=== PATIENT | female | born 1985 | race African-American/Black ===

== ENCOUNTER 2023-04-08 10:05 | Emergency (ER) | payer OTHER, SELFPAY ==
[2023-04-08 10:20] VITALS: BP 113/80; PULSE 73; RESP 18; TEMP 36.8; O2SAT 99; BMI 26.6
--- NOTE | 2023-04-08 10:38 | ED_ITS ---
HPI - URI/Sore Throat General Chief Complaint: Upper Respiratory Infection Stated Complaint: HEADACHE/POSS. FEVER Time Seen by Provider: 04/08/23 10:38 Source: patient Limitations: no limitations History of Present Illness HPI Narrative: Because emergency department complaining of runny nose, sore throat, myalgias, headache and feeling this way for the last 3 weeks. She has a cough which is nonproductive. She has been using Mucinex without any relief. He was seen at [place] 2 times and was told she had a viral infection but she was not tested for anything other than covid19 during her 1st visit. 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 She states that she had a fever one week ago. She denies any chest pain, shortness of breath. She denies any wheezing. She has no previous history of lung disease. She denies any nausea, vomiting, or diarrhea. He denies any abdominal pain, flank pain, hematuria, dysuria. Related Data Allergies Allergy/AdvReac Type Severity Reaction Status Date / Time No Known Drug Allergies Allergy Verified 04/08/23 10:24 Review of Systems ROS Status of ROS 10 or more systems reviewed and unremarkable except as noted in history and below [facility] Social History Smoking status: Current every day smoker Exam Narrative Exam Narrative: Nurses notes and vital signs reviewed and patient is not hypoxic. General: Nontoxic, Well-appearing and in no apparent distress. Skin: Warm, dry, no pallor noted. No Rash Head: Normocephalic, atraumatic. Neck: Supple, non-tender. Eye: Pupils are equal, round and EOMI. No scleral icterus. Ears, Nose, Mouth, and Throat: TM clear, no posterior oropharynx erythema or nasal mucosal hypertrophy, uvula is mid-line Oral mucosa is moist Cardiovascular: Regular Rate and Rhythm without murmur, gallop or rub. Respiratory: No accessory muscle use or respiratory distress. Lungs are clear to auscultation, no wheezing, rales or rhonchi Chest Wall: no tenderness Back: No midline thoracic or lumbar vertebral tenderness. No CVA tenderness Musculoskeletal: normal ROM, no calf or popliteal tenderness, no lower extremity edema/swelling GI: Abdomen is soft, non-distended. Normal bowel sounds. No masses appreciated. No tenderness to palpation. No rebound, guarding, or rigidity noted. Neurological: A&O x4. No cranial nerve dysfunction observed. No truncal ataxia. Moves all extremities. Sensation intact. Psychiatric: Cooperative and interactive. Normal mood and affect. Constitutional Vital Signs, click to edit/add: Last Vital Signs Temp 98.3 F 04/08/23 10:20 Pulse 73 04/08/23 10:20 Resp 18 04/08/23 10:20 BP 113/80 04/08/23 10:20 Pulse Ox 99 04/08/23 10:20 O2 Del Method Room Air 04/08/23 10:20 Course Vital Signs Vital signs: Vital Signs Temperature 98.3 F 04/08/23 10:20 Pulse Rate 73 04/08/23 10:20 Respiratory Rate 18 04/08/23 10:20 Blood Pressure 113/80 04/08/23 10:20 Pulse Oximetry 99 04/08/23 10:20 Oxygen Delivery Method Room Air 04/08/23 10:20 Temperature 98.3 F 04/08/23 10:20 Pulse Rate 73 04/08/23 10:20 Respiratory Rate 18 04/08/23 10:20 Blood Pressure 113/80 04/08/23 10:20 Pulse Oximetry 99 04/08/23 10:20 Oxygen Delivery Method Room Air 04/08/23 10:20 MDM - URI/Sore Throat MDM Narrative Medical decision making narrative: Chest x-ray was done and is unremarkable. Viral respiratory panel was ordered and is positive for rhinovirus. THE results discussed with patient. Patient was given an injection of Toradol. Patient is nontoxic, stable for outpatient follow-up and treatment. At this time the patient is without objective evidence of an acute process requiring hospitalization or inpatient management. The patient has remained hemodynamically stable. No additional indication for emergent studies at this time. I answered all questions. Discussed discharge instructions including standard anticipatory guidance and what should prompt a return to the emergency department, including if they get worse are not getting better or develops any new or concerning symptoms. I've given them specific time frame in which to follow-up, and who to follow-up with. The patient demonstrates understanding. Patient is nontoxic and stable for discharge with outpatient follow-up. This note was created with the assistance of a speech recognition program. Although the intention is to generate documents that actually reflects the content of the visit, no guarantees can be provided that every mistake has been identified and corrected by editing. Differential Diagnosis Differential diagnosis: Likely upper respiratory infection, viral infection, bronchitis and pharyngitis Lab Data Attestation: I reviewed the patient's lab results. Labs: Lab Results 04/08/23 Range/Units 10:41 Adenovirus (PCR) Not detected (NOT DETECTE) C. pneumoniae DNA (PCR) Not detected (NOT DETECTE) Coronavirus Type OC43 Not detected (NOT DETECTE) Coronavirus Type HKU1 Not detected (NOT DETECTE) Coronavirus Type 229E Not detected (NOT DETECTE) Coronavirus Type NL63 Not detected (NOT DETECTE) Human Metapneumovir PCR Not detected (NOT DETECTE) M. pneumoniae (PCR) Not detected (NOT DETECTE) Parainfluenza PCR Not detected (NOT DETECTE) Parainfluenza 2 (PCR) Not detected (NOT DETECTE) Parainfluenza 3 (PCR) Not detected (NOT DETECTE) Parainfluenza 4 (PCR) Not detected (NOT DETECTE) RSV (RT-PCR) Not detected (NOT DETECTE) Entero/Rhino (PCR) Detected A (NOT DETECTE) SARS-CoV-2 (PCR) Not detected (NOT DETECTE) Bordetella pertussis (PCR) Not detected (NOT DETECTE) B parapertussis DNA PCR Not detected (NOT DETECTE) Influenza Type A (PCR) Not detected (NOT DETECTE) Influenza Type B (PCR) Not detected (NOT DETECTE) Discharge Plan Discharge Chief Complaint: Upper Respiratory Infection Clinical Impression: Upper respiratory infection, Rhinovirus infection Patient Disposition: Home, Self-Care Time of Disposition Decision: 12:20 Condition: Good Mode of Transportation: Private Vehicle Instructions: Upper Respiratory Infection (ED) Stand Alone Forms: Portal Instructions Referrals: ALIYA SINGER APRN [Physician] - 1 week
--- NOTE | 2023-04-08 10:42 | XR_ITS ---
The [address] [address] Patient Name: LANG JAMES MRN: [id number] date: 1985 Sex: F Assigned Patient Location: ER Current Patient Location: ER Accession/Order Number: [id number] Exam Date: 04/08/2023 11:10 Report Date: 04/08/2023 11:32 At the request of: HARRY HUERTA Procedure: XR chest 2V EXAM: XR chest 2V HISTORY: cough for 3 weeks COMPARISON: None. TECHNIQUE: PA and lateral views of the chest. FINDINGS: The cardiomediastinal silhouette is normal. No focal consolidation is identified. There is no pneumothorax. No pleural effusion is noted. The osseous structures are intact. XR/XR chest 2V IMPRESSION: No acute cardiopulmonary process. Electronically authenticated by: VICKY HAGEN Date: 04/08/2023 11:32
[2023-04-08 11:28] LABS: Adenovirus NOT DETECTED (NOT DETECTE); Bordetella parapertussis NOT DETECTED (NOT DETECTE); Coronavirus 229E NOT DETECTED (NOT DETECTE); Coronavirus HKU1 NOT DETECTED (NOT DETECTE); Coronavirus NL63 NOT DETECTED (NOT DETECTE); Coronavirus OC43 NOT DETECTED (NOT DETECTE); Human Metapneumovirus NOT DETECTED (NOT DETECTE); Influenza A NOT DETECTED (NOT DETECTE); Influenza B NOT DETECTED (NOT DETECTE); Mycoplasma pneumoniae NOT DETECTED (NOT DETECTE); Parainfluenza Virus 1 NOT DETECTED (NOT DETECTE); Parainfluenza Virus 2 NOT DETECTED (NOT DETECTE); Parainfluenza Virus 3 NOT DETECTED (NOT DETECTE); Parainfluenza Virus 4 NOT DETECTED (NOT DETECTE); Respiratory Syncytial Virus NOT DETECTED (NOT DETECTE); SARS-CoV-2 NOT DETECTED (NOT DETECTE)
[2023-04-08 12:16] LABS: Human Rhinovirus/Enterovirus DETECTED (NOT DETECTE)
[2023-04-08] MEDS: KETOROLAC TROMETHAMINE 60 MG/2 ML VIAL IM (12:28)
[2023-04-08 12:33] VITALS: BP 143/88; PULSE 59; RESP 18; O2SAT 100
== END 2023-04-08 12:34 | disposition home or self-care (01) ==
PROVIDERS: Emergency Provider Emergency Medicine
DX: J06.9 Acute upper respiratory infection, unspecified (principal); B97.89 Other viral agents as the cause of diseases classified elsewhere; F17.210 Nicotine dependence, cigarettes, uncomplicated; Z20.822 Contact with and (suspected) exposure to COVID-19
CPT/HCPCS: 0202U; 71046; 96372; 99285

== ENCOUNTER 2023-06-25 19:32 | Emergency (ER) | payer OTHER, SELFPAY ==
[2023-06-25 19:40] VITALS: BP 133/82; PULSE 68; RESP 16; TEMP 36.9; O2SAT 100; BMI 25.8
--- NOTE | 2023-06-25 20:03 | PC.NURSE ---
Patient states she has been dealing with episodes of diarrhea for 2 years off and on. has seen her family doctor and was diagnosed with dumping syndrome. gall bladder removed in 2019. patient states she had 12 episodes of diarrhea yesterday. has been having to have bowel movements within 10 minutes of eating. states her family doctor has not referred her for gastro. denies nausea and vomiting
[2023-06-25 20:12] LABS: Basophils Percent Auto 0.5 % (0.2-2.0); Eosinophils Absolute Auto 0.2 10^3/uL (0.0-0.7); Eosinophils Percent Auto 3.9 % (0.9-7.0); Hematocrit 39.7 % (36.0-48.0); Immature Granulocytes Abs Auto 0.01 10^3/uL (0.00-0.03); Immature Granulocytes Pct Auto 0.2 % (0.0-0.5); Lymphocytes Absolute Auto 1.3 10^3/uL (1.2-3.8); Lymphocytes Percent Auto 30.5 % (20.5-60.0); Mean Corpuscular HGB Conc 32.7 g/dL (29.9-35.2); Mean Corpuscular Hemoglobin 28.9 pg (26.7-34.0); Mean Corpuscular Volume 88.2 fL (81.0-99.0); Mean Platelet Volume 9.9 fL (9.5-13.5); Monocytes Absolute Auto 0.3 10^3/uL (0.3-0.8); Monocytes Percent Auto 7.7 % (1.7-12.0); Neutrophils Absolute Auto 2.4 10^3/uL (1.4-6.5); Neutrophils Percent Auto 57.2 % (43.0-75.0); Platelet Count 295 10^3/uL (150-450); Red Cell Distribution Width 12.3 % (11.0-15.0); White Blood Count 4.1 10^3/uL (4.0-11.0)
[2023-06-25] MEDS: 0.9 % SODIUM CHLORIDE 1,000 ML 999 ML IV (20:26)
[2023-06-25 20:28] LABS: Alanine Aminotransferase 26 U/L (14-59); Albumin Globulin Ratio 1.1; Albumin Level 4.1 g/dL (3.4-5.0); Alkaline Phosphatase 70 U/L (46-116); Anion Gap 10.6; Aspartate Amino Transferase 16 U/L (15-37); BUN Creatinine Ratio 16.7; Bilirubin Total 0.3 mg/dL (0.2-1.0); Carbon Dioxide 27.8 mmol/L (21.0-32.0); Chloride 103 mmol/L (98-107); Estimated GFR (African America >60 (>=60); Estimated GFR (Non-African Ame >60 (>=60); Globulin 3.6 g/dL; Glucose 113 mg/dL (74-106); Potassium 3.4 mmol/L (3.5-5.1); Sodium 138 mmol/L (136-145); Total Protein 7.7 g/dL (6.4-8.2)
--- NOTE | 2023-06-25 20:59 | CT_ITS ---
[address] [address] Patient Name: LANG JAMES MRN: [id number] date: 1985 Sex: F Assigned Patient Location: ER Current Patient Location: ER Accession/Order Number: [id number] Exam Date: 06/25/2023 21:27 Report Date: 06/25/2023 22:16 At the request of: JESSIE BASILIO Procedure: CT abdomen pelvis w con EXAMINATION: CT ABDOMEN AND PELVIS WITH IV CONTRAST CLINICAL HISTORY: Diarrhea TECHNIQUE: CT of the abdomen and pelvis was performed using standard technique, scanning from just above the dome of the diaphragm to the symphysis pubis. All CT scans at this facility use dose modulation, iterative reconstruction, and/or weight based dosing when appropriate to reduce radiation dose to as low as reasonably achievable. Contrast: IV: 100 ml of Omnipaque 300 COMPARISON: CT abdomen and pelvis 09/21/2015 RESULT: Liver: No mass. Biliary: No bile duct dilation. Gallbladder is absent. Spleen: No mass. No splenomegaly. Pancreas: No mass or duct dilation. Adrenals: No mass. Kidneys: No mass, calculus or hydronephrosis. GI tract: Multiple fluid-filled nondilated small bowel and colonic loops, concerning for infectious enterocolitis. No bowel dilation. Stomach is unremarkable. Lymph nodes: No abdominal or pelvic lymphadenopathy. Mesentery/Peritoneum: No ascites or mass. Retroperitoneum: No mass. Vasculature: The celiac axis and SMA are patent. The portal vein and branches, splenic vein, SMV, and hepatic veins are patent. No abdominal aortic aneurysm. Pelvis: No mass, ascites or fluid collection. Circumferential urinary bladder wall thickening Bones/Soft Tissues: No significant finding. Lower thorax: Unremarkable. CT/CT abdomen pelvis w con IMPRESSION: Multiple fluid-filled nondilated small bowel and colonic loops, concerning for infectious enterocolitis. Electronically authenticated by: OSMAN PONCE Date: 06/25/2023 22:16
[2023-06-25 21:02] LABS: SARS-CoV-2 Ag NEGATIVE (NEGATIVE)
[2023-06-25] MEDS: POTASSIUM CHLORIDE 10 MEQ ER TABLET 40 MEQ PO (21:08)
--- NOTE | 2023-06-25 21:24 | ED_ITS ---
HPI - General Adult General Chief complaint: Nausea/Vomiting/Diarrhea Stated complaint: Diarrhea Time Seen by Provider: 06/25/23 19:42 Source: patient Mode of arrival: walk-in Limitations: no limitations History of Present Illness HPI narrative: patient complains of multiple bouts of foul-smelling diarrhea that has become worse over the last couple of days. She told me that over the last two years she has had difficulty with her bowels. She said that she had her gallbladder taken out and seemed to be doing okay in a few weeks later started to develop cramping and diarrhea. She's been evaluated multiple times by her primary care provider at [facility] in [place] and was told that she had dumping syndrome as a result of her recent cholecystectomy. She has never had upper or lower endoscopy and has never been referred to a art objects repairer. She has taken numerous medications to try and prevent diarrhea without much improvement. She said that she had not had any recent tests for this Related Data Home Medications Medication Instructions Recorded Confirmed loperamide 2 mg capsule 2 mg PO Q6H PRN loose stool 06/25/23 06/25/23 (Anti-Diarrheal (loperamide)) Previous Rx's Medication Instructions Recorded ciprofloxacin HCl 500 mg tablet 500 mg PO BID #14 tabs 06/25/23 (Cipro) hyoscyamine sulfate 0.125 mg 0.125 mg PO Q6H PRN abdominal pain 06/25/23 sublingual tablet (Levsin/SL) #20 tabs metronidazole 500 mg tablet 500 mg PO Q8H 7 days #21 tabs 06/25/23 ondansetron 4 mg disintegrating 4 mg PO Q6H PRN nausea and 06/25/23 tablet vomiting #20 tabs Allergies Allergy/AdvReac Type Severity Reaction Status Date / Time diphenhydramine Allergy Verified 06/25/23 19:45 [From Benadryl] hydroxyzine [From Vistaril] Allergy Verified 06/25/23 19:45 lamotrigine [From Lamictal] Allergy Verified 06/25/23 19:45 loratadine [From Claritin] Allergy Verified 06/25/23 19:45 mupirocin [From Bactroban] Allergy Verified 06/25/23 19:45 sulfamethoxazole Allergy Verified 06/25/23 19:45 [From Bactrim] trimethoprim [From Bactrim] Allergy Verified 06/25/23 19:45 PFSH PFSH Social History Smoking status: Current every day smoker Exam Narrative Exam Narrative: Nurses notes and vital signs reviewed and patient is not hypoxic. afebrile General: Well-appearing and in no apparent distress. Skin: Warm, dry, no pallor noted. Head: Normocephalic, atraumatic. Eye: Pupils are equal, round and EOMI. No scleral icterus. Cardiovascular: Regular Rate and Rhythm without murmur, gallop or rub. Respiratory: No accessory muscle use or respiratory distress. Lungs are clear to auscultation, no wheezing, rales or rhonchi Back: No CVA tenderness Musculoskeletal: normal ROM GI: Abdomen is soft, non-distended. Normal bowel sounds. No masses appreciated. No tenderness to palpation. No rebound, guarding, or rigidity noted. Neurological: A&O x4. No cranial nerve dysfunction observed. No truncal ataxia. Moves all extremities. Sensation intact. Psychiatric: Cooperative and interactive. Normal mood and affect. Constitutional Vital Signs, click to edit/add: Last Vital Signs Temp 98.4 F 06/25/23 19:40 Pulse 68 06/25/23 19:40 Resp 16 06/25/23 19:40 BP 133/82 06/25/23 19:40 Pulse Ox 100 06/25/23 19:40 O2 Del Method Room Air 06/25/23 19:40 Course Vital Signs Vital signs: Vital Signs Temperature 98.4 F 06/25/23 19:40 Pulse Rate 68 06/25/23 19:40 Respiratory Rate 16 06/25/23 19:40 Blood Pressure 133/82 06/25/23 19:40 Pulse Oximetry 100 06/25/23 19:40 Oxygen Delivery Method Room Air 06/25/23 19:40 Temperature 98.4 F 06/25/23 19:40 Pulse Rate 68 06/25/23 19:40 Respiratory Rate 16 06/25/23 19:40 Blood Pressure 133/82 06/25/23 19:40 Pulse Oximetry 100 06/25/23 19:40 Oxygen Delivery Method Room Air 06/25/23 19:40 Medical Decision Making MDM Narrative Medical decision making narrative: left subtle for normal white blood cell count, just minimally decreased potassium - normal electrolytes otherwise - normal LFTs and normal renal function, negative occult blood. patient was given some oral potassium supplementation. CT scan of the abdomen pelvis was also obtained - diffuse enterocolitis. Long talk with the patient about her results. She was discharged home with referral to Dr. Medina in [place] - gastroenterology. She was prescribed cipro and flagyl with first doses given before discharge home. She was also prescribed Levsin and Zofran. Lab Data Lab results reviewed: Yes I reviewed the patient's lab results Labs: Lab Results 06/25/23 06/25/23 Range/Units 20:00 20:40 WBC 4.1 (4.0-11.0) 10^3/uL RBC 4.50 (4.20-5.40) 10^6/uL Hgb 13.0 (12.0-16.0) g/dL Hct 39.7 (36.0-48.0) % MCV 88.2 (81.0-99.0) fL MCH 28.9 (26.7-34.0) pg MCHC 32.7 (29.9-35.2) g/dL RDW 12.3 (11.0-15.0) % Plt Count 295 (150-450) 10^3/uL MPV 9.9 (9.5-13.5) fL Neut % (Auto) 57.2 (43.0-75.0) % Lymph % (Auto) 30.5 (20.5-60.0) % [place] % (Auto) 7.7 (1.7-12.0) % Eos % (Auto) 3.9 (0.9-7.0) % Baso % (Auto) 0.5 (0.2-2.0) % Neut # (Auto) 2.4 (1.4-6.5) 10^3/uL Lymph # (Auto) 1.3 (1.2-3.8) 10^3/uL [place] # (Auto) 0.3 (0.3-0.8) 10^3/uL Eos # (Auto) 0.2 (0.0-0.7) 10^3/uL Baso # (Auto) 0.0 (0.0-0.1) 10^3/uL Abs Immat Gran (auto) 0.01 (0.00-0.03) 10^3/uL Imm/Tot Granulo (auto) 0.2 (0.0-0.5) % Sodium 138 (136-145) mmol/L Potassium 3.4 L (3.5-5.1) mmol/L Chloride 103 (98-107) mmol/L Carbon Dioxide 27.8 (21.0-32.0) mmol/L Anion Gap 10.6 BUN 12.0 (7.0-18.0) mg/dL Creatinine 0.72 (0.55-1.02) mg/dL Est GFR ( Amer) >60 (>=60) Est GFR (Non-Af Amer) >60 (>=60) BUN/Creatinine Ratio 16.7 Glucose 113 H (74-106) mg/dL Calcium 9.0 (8.5-10.1) mg/dL Total Bilirubin 0.3 (0.2-1.0) mg/dL AST 16 (15-37) U/L ALT 26 (14-59) U/L Alkaline Phosphatase 70 (46-116) U/L Total Protein 7.7 (6.4-8.2) g/dL Albumin 4.1 (3.4-5.0) g/dL Globulin 3.6 g/dL Albumin/Globulin Ratio 1.1 SARS-CoV-2 (PCR) Negative (NEGATIVE) Imaging Data CT scan - abdomen: Radiologist's impression: Patient Name: LANG JAMES MRN: [id number] date: 1985 Sex: F Assigned Patient Location: Current Patient Location: Accession/Order Number: [id number] Exam Date: 06/25/2023 21:27 Report Date: 06/25/2023 22:16 At the request of: JESSIE BASILIO Procedure: CT abdomen pelvis w con EXAMINATION: CT ABDOMEN AND PELVIS WITH IV CONTRAST CLINICAL HISTORY: Diarrhea TECHNIQUE: CT of the abdomen and pelvis was performed using standard technique, scanning from just above the dome of the diaphragm to the symphysis pubis. All CT scans at this facility use dose modulation, iterative reconstruction, and/or weight based dosing when appropriate to reduce radiation dose to as low as reasonably achievable. Contrast: IV: 100 ml of Omnipaque 300 COMPARISON: CT abdomen and pelvis 09/21/2015 RESULT: Liver: No mass. Biliary: No bile duct dilation. Gallbladder is absent. Spleen: No mass. No splenomegaly. Pancreas: No mass or duct dilation. Adrenals: No mass. Kidneys: No mass, calculus or hydronephrosis. GI tract: Multiple fluid-filled nondilated small bowel and colonic loops, concerning for infectious enterocolitis. No bowel dilation. Stomach is unremarkable. Lymph nodes: No abdominal or pelvic lymphadenopathy. Mesentery/Peritoneum: No ascites or mass. Retroperitoneum: No mass. Vasculature: The celiac axis and SMA are patent. The portal vein and branches, splenic vein, SMV, and hepatic veins are patent. No abdominal aortic aneurysm. Pelvis: No mass, ascites or fluid collection. Circumferential urinary bladder wall thickening Bones/Soft Tissues: No significant finding. Lower thorax: Unremarkable. IMPRESSION: Multiple fluid-filled nondilated small bowel and colonic loops, concerning for infectious enterocolitis. Electronically authenticated by: OSMAN PONCE Date: 06/25/2023 22:16 Discharge Plan Discharge Chief Complaint: Nausea/Vomiting/Diarrhea Clinical Impression: Enterocolitis Patient Disposition: Home, Self-Care Time of Disposition Decision: 22:29 Prescriptions / Home Meds: New ciprofloxacin HCl [Cipro] 500 mg tablet 500 mg PO BID Qty: 14 0RF metronidazole 500 mg tablet 500 mg PO Q8H 7 Days Qty: 21 0RF ondansetron 4 mg tablet,disintegrating 4 mg PO Q6H PRN (Reason: nausea and vomiting) Qty: 20 0RF hyoscyamine sulfate [Levsin/SL] 0.125 mg tablet, sublingual 0.125 mg PO Q6H PRN (Reason: abdominal pain) Qty: 20 0RF No Action loperamide [Anti-Diarrheal (loperamide)] 2 mg capsule 2 mg PO Q6H PRN (Reason: loose stool) Instructions: Colitis (ED), Enteritis (ED) Stand Alone Forms: Portal Instructions Referrals: Yash MEDINA [Physician] - As soon as possible Physician,Non-Staff, MD [Primary Care Provider] - 1 week
[2023-06-25] MEDS: KETOROLAC TROMETHAMINE 30 MG/ML VIAL IVP (21:50)
[2023-06-25] MEDS: HYOSCYAMINE SULFATE 0.125 MG TAB.SUBL SL (21:51)
[2023-06-25] MEDS: METRONIDAZOLE 250 MG TABLET 500 MG PO (22:50)
[2023-06-25] MEDS: CIPROFLOXACIN HCL 500 MG TABLET PO (22:51)
[2023-06-25 22:53] VITALS: BP 137/95; PULSE 53; RESP 16; TEMP 36.6; O2SAT 100
[2023-06-26 14:56] LABS: SARS-CoV-2 NAA INCONCLUSIVE (NOT DETECTE)
== END 2023-06-25 22:56 | disposition home or self-care (01) ==
PROVIDERS: Emergency Provider Emergency Medicine
DX: R19.7 Diarrhea, unspecified (principal); R11.2 Nausea with vomiting, unspecified; Z90.49 Acquired absence of other specified parts of digestive tract; F17.210 Nicotine dependence, cigarettes, uncomplicated; Z20.822 Contact with and (suspected) exposure to COVID-19
CPT/HCPCS: 36415; 74177; 80053; 85025; 87507; 87635; 87811; 96361; 96374; 99285; Q9967

== ENCOUNTER 2023-10-22 19:18 | Emergency (ER) | payer OTHER, SELFPAY ==
[2023-10-22 19:23] VITALS: BP 113/76; PULSE 72; RESP 16; TEMP 36.7; O2SAT 100; BMI 28.2
--- NOTE | 2023-10-22 19:33 | PC.NURSE ---
covid and flu swabs obtained
--- NOTE | 2023-10-22 19:36 | ED_ITS ---
HPI - General Adult General Chief complaint: Upper Respiratory Infection Stated complaint: headache, diarrhea, vomitting Time Seen by Provider: 10/22/23 19:23 Source: patient Mode of arrival: walk-in History of Present Illness HPI narrative: Patient is a 37-year-old female who presents to the ER for 4-day history of flulike illness. She reports hot and cold chills, scratchy throat, nasal congestion and minimal cough. She had 1 episode of emesis today, diarrhea. She has had no objective fevers. She is not concerned for . No medications taken prior to arrival. 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 Related Data Home Medications ?Medication ?Instructions ?Recorded ?Confirmed loperamide 2 mg capsule 2 mg PO Q6H PRN loose stool 06/25/23 06/25/23 (Anti-Diarrheal (loperamide)) Previous Rx's ?Medication ?Instructions ?Recorded ciprofloxacin HCl 500 mg tablet 500 mg PO BID #14 tabs 06/25/23 (Cipro) hyoscyamine sulfate 0.125 mg 0.125 mg PO Q6H PRN abdominal pain 06/25/23 sublingual tablet (Levsin/SL) #20 tabs metronidazole 500 mg tablet 500 mg PO Q8H 7 days #21 tabs 06/25/23 ondansetron 4 mg disintegrating 4 mg PO Q6H PRN nausea and 06/25/23 tablet vomiting #20 tabs ketorolac 10 mg tablet 10 mg PO TID PRN pain #10 tabs 10/22/23 ondansetron 4 mg disintegrating 4 mg PO Q6H PRN nausea and 10/22/23 tablet vomiting #12 tabs Allergies Allergy/AdvReac Type Severity Reaction Status Date / Time diphenhydramine Allergy Verified 06/25/23 19:45 [From Benadryl] hydroxyzine [From Vistaril] Allergy Verified 06/25/23 19:45 lamotrigine [From Lamictal] Allergy Verified 06/25/23 19:45 loratadine [From Claritin] Allergy Verified 06/25/23 19:45 mupirocin [From Bactroban] Allergy Verified 06/25/23 19:45 sulfamethoxazole Allergy Verified 06/25/23 19:45 [From Bactrim] trimethoprim [From Bactrim] Allergy Verified 06/25/23 19:45 Review of Systems ROS Constitutional Reports: chills; Denies: fever Ears, nose, mouth, and throat Reports: throat pain and nasal congestion Cardiovascular Denies: chest pain Respiratory Reports: cough; Denies: shortness of breath Gastrointestinal Reports: nausea, vomiting and diarrhea; Denies: abdominal pain Integumentary/Breast Denies: rash Neurological Reports: headache Hematologic/Lymphatic Denies: easy bruising PFSH PFSH Social History Smoking status: Current every day smoker Exam Narrative Exam Narrative: Gen.: Awake, alert, in no distress Head: Normocephalic, atraumatic ENT: Moist mucous membranes Respiratory: No respiratory distress, lungs clear bilaterally Cardio: Regular rate and rhythm Gastrointestinal: Abdomen is soft, nondistended and nontender to palpation Extremities: Moves extremities equally Psych: Normal mood and affect Neuro: No focal neuro deficit Skin: Warm, dry, intact Constitutional Vital Signs, click to edit/add: Last Vital Signs Temp 98.0 F 10/22/23 19:23 Pulse 72 10/22/23 19:23 Resp 16 10/22/23 19:23 BP 113/76 10/22/23 19:23 Pulse Ox 100 10/22/23 19:23 Course Vital Signs Vital signs: Vital Signs Temperature 98.0 F 10/22/23 19:23 Pulse Rate 72 10/22/23 19:23 Respiratory Rate 16 10/22/23 19:23 Blood Pressure 113/76 10/22/23 19:23 Pulse Oximetry 100 10/22/23 19:23 Temperature 98.0 F 10/22/23 19:23 Pulse Rate 72 10/22/23 19:23 Respiratory Rate 16 10/22/23 19:23 Blood Pressure 113/76 10/22/23 19:23 Pulse Oximetry 100 10/22/23 19:23 Medical Decision Making MDM Narrative Medical decision making narrative: COVID and influenza were negative. Patient was stable vital signs in the ER. Treated with Zofran, Decadron, Toradol. She is discharged home with a prescription for Toradol and Zofran. Follow-up with PCP and return to the ER if symptoms change or worsen Medical Records Medical records reviewed: Yes I reviewed the patient's medical records Lab Data Lab results reviewed: Yes I reviewed the patient's lab results Labs: Lab Results 10/22/23 Range/Units 19:30 Influenza Type A Ag Negative Influenza Type B Ag Negative SARS-CoV-2 Ag (CV2AG) Negative (NEGATIVE) Discharge Plan Discharge Stand Alone Forms: Portal Instructions Chief Complaint: Upper Respiratory Infection Clinical Impression: Upper respiratory infection, Viral infection Patient Disposition: Home, Self-Care Time of Disposition Decision: 20:31 Condition: Good Prescriptions / Home Meds: New ketorolac 10 mg tablet 10 mg PO TID PRN (Reason: pain) Qty: 10 0RF ondansetron 4 mg tablet,disintegrating 4 mg PO Q6H PRN (Reason: nausea and vomiting) Qty: 12 0RF No Action loperamide [Anti-Diarrheal (loperamide)] 2 mg capsule 2 mg PO Q6H PRN (Reason: loose stool) ciprofloxacin HCl [Cipro] 500 mg tablet 500 mg PO BID Qty: 14 0RF metronidazole 500 mg tablet 500 mg PO Q8H 7 Days Qty: 21 0RF ondansetron 4 mg tablet,disintegrating 4 mg PO Q6H PRN (Reason: nausea and vomiting) Qty: 20 0RF hyoscyamine sulfate [Levsin/SL] 0.125 mg tablet, sublingual 0.125 mg PO Q6H PRN (Reason: abdominal pain) Qty: 20 0RF Print Language: Lithuanian Instructions: Viral Syndrome (ED) Referrals: Physician,Non-Staff, MD [Primary Care Provider] - 1 week
[2023-10-22] MEDS: DEXAMETHASONE SOD PHOS 10 MG/ML VIAL PO (20:05)
[2023-10-22] MEDS: ONDANSETRON 4 MG RAPDIS TABLET SL (20:05)
[2023-10-22] MEDS: KETOROLAC TROMETHAMINE 60 MG/2 ML VIAL IM (20:05)
[2023-10-22 20:10] LABS: Influenza Virus A Antigen Negative; Influenza Virus B Antigen Negative; Internal Control Within Normal Limits; SARS-CoV-2 Ag NEGATIVE (NEGATIVE)
--- OUTSIDE RECORDS SUMMARY | 2023-10-22 20:18 | XMS_ITS | CCD ---
Author Organization [facility] Care Team Providers Care Global Chief Experience Officer Name Role Phone [facility] [place] [place] OTHER: [facility] Unavailable CONSULT, GASTROENTEROLOGY Consulting PILO Andino Admitting Unavailable GAGAN CEDEÑO Attending Unavailable TAMI IBANEZ Admitting Unavailable TAMI IBANEZ Attending Unavailable [facility] [place] [place] OTHER: [facility] Care Unavailable Danika Harvey CNP Primary Care Provider [phone] Unavailable Primary Care Provider Unavailabl e PROVIDER, UNKNOWN Admitting Unavailable SINDY GUADALUPE Attending Unavailable Allergies Allergy Classification Reported Allergen(s) Allergy Type Date of Onset Reaction(s) Facility (2 sources) Citalopram Drug Allergy 12-25-19 22 Hives / Urticaria [facility] Work Phone: (2 sources) diphenhydrAMINE Drug Allergy 12-25-19 Hives / Urticaria [facility] Work Phone: (2 sources) lamoTRIgine Drug Allergy 12-25-19 Hives / Urticaria [facility] Work Phone: (2 sources) lurasidone Drug Allergy 12-25-19 Hives / Urticaria [facility] Work Phone: (2 sources) Mupirocin Drug Allergy 12-25-19 Hives / Urticaria [facility] Work Phone: (2 sources) Sulfamethoxazole / Trimethoprim Drug Allergy 12-25-19 Hives / Urticaria [facility] Work Phone: (2 sources) diphenhydrAMINE; Translations: [DIPHENHYDRAMINE] Drug Allergy 08-20-19 Hives [facility] (2 sources) hydrOXYzine; Translations: [ATAZINE] Drug Allergy 08-20-19 Hives [facility] (2 sources) Mupirocin; Translations: [MUPIROCIN] Drug Allergy 08-20-19 24 [facility]: Medications Current Medications Medication Drug Class(es) Dates Sig (Normalized) Sig (Original) ARIPiprazole 10 mg oral tablet (4 sources) Atypical Antipsychotic Start: 12-24-2021 Abilify 10 MG Oral Tablet 12/24/2021 Provider: Danika Harvey CNP Start: 12-24-2021 End: 12-24-2021 Abilify 15 MG Oral Tablet - 12/24/2021 Provider: DULoxetine 30 mg delayed release oral capsule (4 sources) Serotonin and Norepinephrine Reuptake Inhibitor Start: 12-24-2021 End: 12-24-2021 Cymbalta 30 MG Oral Capsule Delayed Release Particles 12/24/2021 Provider: Danika Harvey CNP ibuprofen 800 mg oral tablet (2 sources) Nonsteroidal Anti-inflammatory Drug Start: 08-20-2023 End: 08-20-2023 take 1 tablet by mouth every eight hours as needed for pain ibuprofen (MOTRIN) 800 MG tablet Take 1 Tablet by mouth every 8 hours as needed for Pain. 30 Tablet 0 08/20/2023 Active predniSONE 20 mg oral tablet (2 sources) Start: 12-24-2021 predniSONE 20 MG Oral Tablet 12/24/2021 Provider: Danika Harvey CNP Completed/Discontinued Medications Medication Drug Class(es) Dates Sig (Normalized) Sig (Original) cyclobenzaprine hydrochloride 10 mg oral tablet (3 sources) Muscle Relaxant Start: 08-20-2023 End: 08-20-2023 cyclobenzaprine (FLEXERIL) tablet 1 ml ketorolac tromethamine 15 mg/ml cartridge (1 source) Nonsteroidal Anti-inflammatory Drug, Cyclooxygenase Inhibitor Start: 08-20-2023 End: 08-20-2023 ketorolac (TORADOL) 15 MG/ML injection Problems Problem Classification Problem Date Documented Date Episodic/Chronic Abdominal pain (2 sources) Right upper quadrant pain; Translations: [Right upper quadrant pain] Onset: 06-22-2018 Episodic Anxiety disorders (4 sources) Complex posttraumatic stress disorder; Translations: [Post-traumatic stress disorder, unspecified] Onset: 12-24-2021 Chronic Biliary tract disease (4 sources) Calculus of gallbladder without cholecystitis without obstruction; Translations: [Calculus of bile duct without cholangitis or cholecystitis without obstruction] Onset: 06-22-2018 Episodic Immunizations and screening for infectious disease (2 sources) Encounter for screening for human immunodeficiency virus [HIV]; Translations: [Screening For Hiv] Onset: 12-24-2021 Episodic Miscellaneous mental health disorders (2 sources) Mental disorder; Translations: [Unspecified nonpsychotic mental disorder] Onset: 12-24-2021 Chronic Mood disorders (4 sources) Bipolar I disorder; Translations: [Bipolar disorder, unspecified] Onset: 12-24-2021 Chronic Other nutritional; endocrine; and metabolic disorders (2 sources) Finding of body mass index; Translations: [Body mass index (observable entity)] Onset: 12-24-2021 Chronic Other screening for suspected conditions (not mental disorders or infectious disease) (4 sources) Encounter for screening for diabetes mellitus; Translations: [Diabetes Risk Test Score] Onset: 12-24-2021 Episodic Sprains and strains (2 sources) Injury of abdominal wall; Translations: [Strain of muscle, fascia and tendon of abdomen, initial encounter] 08-20-2023 Episodic Results Test Name Value Interpretation Reference Range Facility ED Provider Noteson 08-20-19 Personnel Research Psychologist Authentication Interface Message Text EMERGENCY DEPARTMENT - VISIT NOTE Date: 08/20/2023 Patient: Lang Ash Triage: Patient presents with: Abdominal pain - Said she was moving a bed at work and had sudden onset of 7/10 pain in abd wrapping around to back HISTORY OF PRESENT ILLNESS ------ 08/20/2023, 8:19 PM. The history is provided by the Patient. Lang Ash is a 37 year old female who presents to the ED for right sided abdominal pain after moving heavy patient bed without wheels. Onset ~1500 today Worse with palpation Has some associated right low back pain. No fall or other trauma. Saw some urgent care work comp clinic she was referred to initially and completed initial work comp papers. Now seeking care here for persistent pain. No meds taken. No prior injury/back pain. REVIEW OF SYSTEMS The following systems were reviewed: All other pertinent ROS negative except as noted in HPI PAST HISTORY -- Past Medical History: Denies Past Surgical History: Abd surg x4, hys, appendix Social History: Social History Socioeconomic History Marital status: Single Social Determinants of Health Financial Resource Strain: Low Risk (09/30/2018) Received from [facility] Overall Financial Resource Strain (CARDIA) Difficulty of Paying Living Expenses: Not hard at all Food Insecurity: No Food Insecurity (03/23/2023) Received from [facility] Hunger Screening Within the past 12 months we worried whether our food would run out before we got money to buy more.: Never True Within the past 12 months the food we bought just didn't last and we didn't have money to get more.: Never True Transportation Needs: No Transportation Needs (09/30/2018) Received from [facility] PRAPARE - Transportation Lack of Transportation (Medical): No Lack of Transportation (Non-Medical): No Physical Activity: Insufficiently Active (09/30/2018) Received from [facility] Exercise Vital Sign Days of Exercise per Week: 3 days Minutes of Exercise per Session: 30 min Stress: Stress Concern Present (09/30/2018) Received from [facility] Citizen Of [place] [employer] Occupational Health - Occupational Stress Questionnaire Feeling of Stress : To some extent Social Connections: Moderately Isolated (09/30/2018) Received from [facility] Social Connection and Isolation Panel [NHANES] Frequency of Communication with Friends and Family: Twice a week Frequency of Social Gatherings with Friends and Family: Three times a week Attends Sabianist Services: Never Active Member of Clubs or Organizations: No Attends Club or Organization Meetings: Never Marital Status: Medications: The patient's home medications have been reviewed. Allergies: Bactroban [mupirocin], Benadryl [diphenhydramine], and Vistaril [atazine] PHYSICAL EXAM - Blood Pressure 116/89 Pulse 69 Temperature 99 ???F (37.2 ???C) (Oral) Respiration 18 Weight 156 lb (70.8 kg) Oxygen Saturation 100% Constitutional: Alert, awake HENT: mucous membranes moist Eyes: no discharge, nonicteric Neck: neck supple, trachea midline Lungs: no respiratory distress Heart: RRR , no peripheral edema Abdomen: Soft, nontender, ND, no masses, no rebound/guarding, no peritoneal signs Extremities: normal peripheral perfusion Neuro: Alert and oriented, normal speech, ALONZO, ambulates Skin: warm and dry Psych: cooperative, appropriate thought content and judgement -- ED COURSE ----- ED Medications: Medications ketorolac (TORADOL) 15 MG/ML injection (has no administration in time range) cyclobenzaprine (FLEXERIL) tablet (has no administration in time range) MEDICAL DECISION MAKING Vital Signs: Reviewed the patient's vital signs. Nursing Notes: Reviewed and utilized the nursing notes. Nursing triage and assessment notes reviewed and incorporated. Nature of the Problem: New problem to patient ED Physician Core Measures: None indicated Additional Medical Decision Making: Evaluation w/ HPI, physical exam, labs and studies as above. Presents with right low back pain and right lower abdominal wall pain after lifting. No fall. No prior hx of hernia. No abd wall bulging. Educated on supportive care. Start NSAIDS/flexeril for suspected MSK etiology. Although not representing an exhaustive list of the differential diagnoses considered in this patient, to a reasonable d (more content not included)... Normal [facility] [employer] [facility] CHEM 7on 06-23-2018 Anion gap molar conc 10 mmol/L Normal 7-17 [facility] Comment on above: Performed By: #### H [facility], [facility]FP #### [facility] [address] [place] [address] [facility] [address] [place] [address] 89502 Chloride molar conc 105 mmol/L Normal 98-108 [facility] Comment on above: Performed By: #### [facility] MAT[facility]WSM7, HFP #### [facility] [address] [place] [address] 90941 [facility] [address] [place] [address] 71609 CO2 molar conc 28 mmol/L Normal 22-30 [facility] Comment on above: Performed By: #### [facility]WSM7, HFP #### [facility] [address] [place] [address] 14210 [facility] [address] [place] [address] 11730 Creatinine mass conc 0.76 mg/dL Normal 0.50-1.20 [facility] Comment on above: Performed By: #### H BRENDAN HOLDEN7, HFP #### [facility] [address] [place] [address] 50529 [facility] [address] [place] [address] 60672 Est GFR, >60 Normal >60 [facility] Comment on above: Performed By: #### BRENDAN MITTAL7, HFP #### [facility] [address] [place] [address] 59549 [facility] [address] [place] [address] 40470 Est GFR,non >60 Normal >60 [facility] Comment on above: Performed By: #### BRENDAN MITTAL7, HFP #### [facility] [address] [place] [address] 46059 [facility] [address] [place] [address] 14214 Glucose mass conc 85 mg/dL Normal 70-99 [facility] Comment on above: Performed By: #### ROSIBEL MITTAL, HFP #### [facility] [address] [place] [address] 76117 [facility] [address] [place] [address] 94038 Osmolality 288 mOsm/kg Normal 278-305 [facility] Comment on above: Performed By: #### ROSIBEL MITTAL, HFP #### [facility] [address] [place] [address] 85899 [facility] [address] [place] [address] 20282 Potassium molar conc 4.8 mmol/L Normal 3.5-5.0 [facility] Comment on above: Performed By: #### Raina HOLDEN CHM7, HFP #### [facility] [address] [place] [address] 26059 [facility] [address] [place] [address] 97059 Sodium molar conc 138 mmol/L Normal 133-143 [facility] Comment on above: Performed By: #### H GARY HOLDENM7, HFP #### [facility] [address] [place] [address] 61922 [facility] [address] [place] [address] 69013 Urea nitrogen mass conc 9 mg/dL Normal - [facility] Comment on above: Performed By: #### BRENDAN MITTAL7, HFP #### [facility] [address] [place] [address] 89446 [facility] [address] [place] [address] 19641 Urea nitrogen/Creatinine mass ratio 12 mg/mg Normal [facility] Comment on above: Performed By: #### ROSIBEL MITTAL, HFP #### [facility] [address] [place] [address] 18839 [facility] [address] [place] [address] 49679 HEMOGRAM (CBC and Platelet)o n 06-23-2018 Hematocrit Volume Fraction (Bld) 38.9 % Normal 34.9-44.3 [facility] Comment on above: Performed By: #### ROSIBEL MITTAL, HFP #### [facility] [address] [place] [id number] [place] [address] [address] [place] [address] 65137 Hemoglobin mass conc (Bld) 12.6 g/dL Normal 11.4-15.2 [facility] Comment on above: Performed By: #### ROSIBEL MITTAL, HFP #### [facility] [address] [place] [address] 81826 [facility] [address] [place] [address] 64806 MCV Entitic volume (RBC) 86.1 fL Normal 79.6-97.7 [facility] Comment on above: Performed By: #### ROSIBEL MITTAL, HFP #### [facility] [address] [place] [address] 03367 [facility] [address] [place] [address] 28899 Mean Cell Hgb 27.9 pg Normal 25.9-33.9 [facility] Comment on above: Performed By: #### ROSIBEL MITTAL, HFP #### [facility] [address] [place] [address] 76044 [facility] [address] [place] [address] 29665 Mean Cell Hgb Conc 32.4 g/dL Normal 31.4-35.9 [facility] Comment on above: Performed By: #### ROSIBEL MITTAL, HFP #### [facility] [address] [place] [address] 41477 [facility] [address] [place] [address] Nucleated RBC #/vol (Bld) 0.0 /100 WBC Normal 0.0-0.2 [facility] Comment on above: Performed By: #### ROSIBEL MITTAL, HFP #### [facility] [address] [place] [address] [place] [address] Platelet mean volume Entitic volume (Bld) 9.7 fL Normal 8.5-12.2 [facility] Comment on above: Performed By: #### ROSIBEL MITTAL, HFP #### [facility] [address] [place] [address] [place] [address] 62743 Platelets #/vol (Bld) 252 10*3/uL Normal 150-393 [facility] Comment on above: Performed By: #### ROSIBEL MITTAL, HFP #### [facility] [address] [place] [address] 16887 [facility] [address] [place] [address] 03203 RBC #/vol (Bld) 4.52 10*6/uL Normal 3.91-5.04 [facility] Comment on above: Performed By: #### BRENDAN MITTAL7, HFP #### [facility] [address] [place] [address] 39840 [facility] [address] [place] [address] RBC #/vol (Bld) 11.9 % Normal 10.8-14.[address] [facility] Comment on above: Performed By: #### H BRENDAN HOLDEN7, HFP #### [facility] [address] [place] [address] 85262 [facility] [address] [place] [address] 88552 WBC #/vol (Bld) 5.16 10*3/uL Normal 3.99-11.19 [facility] Comment on above: Performed By: #### H BRENDAN HOLDEN7, HFP #### [facility] [address] [place] [id number] [place] [address] [address] [place] [address] HEPATIC FUNCTION PANELon Albumin mass conc 3.8 g/dL Normal 3.5-5.0 [facility] Comment on above: Performed By: #### ROSIBEL MITTAL, HFP #### [facility] [address] [place] [address] 63282 [facility] [address] [place] [address] 61861 ALP enzyme act/vol 91 U/L Normal 32-126 [facility] Comment on above: Performed By: #### ROSIBEL MITTAL, HFP #### [facility] [address] [place] [address] 99835 [facility] [address] [place] [address] 66604 ALT enzyme act/vol 48 U/L Normal 9-48 [facility] Comment on above: Performed By: #### Raina HOLDEN CHM7, HFP #### [facility] [address] [place] [address] 43732 [facility] [address] [place] [address] 63506 AST enzyme act/vol 19 U/L Normal 14-40 [facility] Comment on above: Performed By: #### Raina HOLDEN CHM7, HFP #### [facility] [address] [place] [address] 48524 [facility] [address] [place] [address] 91499 Bilirubin mass conc 0.4 mg/dL Normal <1.5 [facility] Comment on above: Performed By: #### H ADINA, CHM7, HFP #### [facility] [address] [place] [address] 14563 [facility] [address] [place] [address] 45439 Bilirubin.direct mass conc 0.1 mg/dL Normal <0.3 [facility] Comment on above: Performed By: #### H EMOGC, CHM7, HFP #### [facility] [address] [place] [id number] [place] [address] [address] [place] [address] Protein mass conc 6.0 g/dL Low 6.4-8.3 [facility] Comment on above: Performed By: #### H ADINA, CHM7, HFP #### [facility] [address] [place] [address] [place] [address] MRI ABDOMEN WITHOUT CONTRAST on 06-23-2018 MRI ABDOMEN WITHOUT CONTRAST EXAM: MRI ABDOMEN WITHOUT CONTRAST, 06/22/2018 16:54 PM CLINICAL INDICATIONS: Cholelithiasis; dilated bile duct on outide CT. Eval for obstruction with MRCP; Sex: Female, Age: 32 years COMPARISON: CT abdomen and pelvis of October 23, 2017. TECHNIQUE: Axial and coronal T2 weighted images, axial T1-weighted images, in and out of phase and with and without fat-suppression. Heavily T2-weighted axial and coronal MRCP images. Radially rotating MRCP images were also made. FINDINGS: Lower Chest: The lung bases are grossly clear. The lower mediastinal structures are unremarkable. Liver: The liver is normal in size and signal intensity. There is no focal lesion in the hepatic parenchyma. ? Gallbladder and biliary tree: The gallbladder is well distended. There are innumerable small calculi filling the gallbladder lumen. There is no significant gallbladder wall thickening or pericholecystic fluid. There is prominence of the central intrahepatic bile ducts, however there is no significant dilatation. The common bile duct measures 7 mm which is borderline in size. There is no filling defect in the common duct visualized on this examination. The duct tapers smoothly to the ampulla. Spleen: Spleen is normal in size and signal characteristics. No focal lesions. Pancreas: Pancreas is normal in morphology and signal characteristics. No focal lesions or ductal dilatation. Kidneys: Kidneys are normal in size and signal. There is no hydronephrosis. Adrenals: Adrenal glands are unremarkable. Retroperitoneal and Vasculature: Aorta and IVC are normal in caliber. There is no significant retroperitoneal lymphadenopathy. GI Tract: Visualized bowel loops are non obstructed. Osseous Structures: Visualized bony structures reveal normal marrow signal. IMPRESSION: 1. Cholelithiasis. No imaging evidence of choledocholithiasis. 2. No evidence of inflammation involving the gallbladder. 3. Prominence of the proximal intrahepatic bile ducts without significant dilatation. Common bile duct is borderline in caliber. Normal [facility] CBC WITH DIFF Jorge A 2017 Abs Baso 0.10 K/uL Normal 0.00-0.15 [facility] Comment on above: Performed By: #### Sage MCINTOSH #### [facility] [address] [place] [address] 10175 Abs Eos 0.36 K/uL Normal 0.00-0.42 [facility] Comment on above: Performed By: #### Sage MCINTOSH #### [facility] [address] [place] [address] 63510 Abs [place] 0.47 K/uL Normal 0.22-0.87 [facility] Comment on above: Performed By: #### Sage MCINTOSH #### [facility] [address] [place] [address] 69585 Basophils/100 WBC (Bld) 1.5 % Normal [facility] Comment on above: Performed By: #### Sage MCINTOSH #### [facility] [address] [place] [address] 33355 DIFFERENTIAL TYPE Electronic Differential Normal [facility] Comment on above: Performed By: #### Sage MCINTOSH #### [facility] [address] [place] [address] 55894 Eosinophils/100 WBC (Bld) 5.2 % Normal [facility] Comment on above: Performed By: #### Sage PRYORJ #### [facility] [address] [place] [address] 19422 Hematocrit Volume Fraction (Bld) 40.7 % Normal 34.9-44.3 [facility] Comment on above: Performed By: #### Sage PRYORJ #### [facility] [address] [place] [address] 77532 Hemoglobin mass conc (Bld) 13.5 g/dL Normal 11.4-15.2 [facility] Comment on above: Performed By: #### Sage PRYORJ #### [facility] [address] [place] [address] 29215 IMMATURE GRANS % 0.3 % Normal [facility] Comment on above: Performed By: #### Sage PRYORJ #### [facility] [address] [place] [address] 77647 IMMATURE GRANS ABSOLUTE <0.04 Normal 0.00-0.08 [facility] Comment on above: Performed By: #### Sage PRYORJ #### [facility] [address] [place] [address] 46002 Lymphocytes #/vol (Bld) 2.14 10*3/uL Normal 1.16-3.51 [facility] Comment on above: Performed By: #### Sage PRYORJ #### [facility] [address] [place] [address] 24221 Lymphocytes/100 WBC (Bld) 31.2 % Normal [facility] Comment on above: Performed By: #### Sage PRYORJ #### [facility] [address] [place] [address] 16958 MCV Entitic volume (RBC) 85.7 fL Normal 79.6-97.7 [facility] Comment on above: Performed By: #### Sage PRYORJ #### [facility] System [address] [place] [address] 02266 Mean Cell Hgb 28.4 pg Normal 25.9-33.9 [facility] Comment on above: Performed By: #### Sage PRYORJ #### [facility] [address] [place] [address] 78834 Mean Cell Hgb Conc 33.2 g/dL Normal 31.4-35.9 [facility] [place] Comment on above: Performed By: #### Sage PRYORJ #### Dell OLMOS, [facility] [address] [place] [address] 27450 Monocytes/100 WBC (Bld) 6.9 % Normal [facility] Comment on above: Performed By: #### Sage PRYORJ #### Dell OLMOS, [facility] [address] [place] [address] 04035 NEUTROPHIL SEGMENTED 54.9 % Normal [facility] Comment on above: Performed By: #### Sage PRYORJ #### Dell OLMOS, [facility] [address] [place] [address] 87360 Nucleated RBC #/vol (Bld) 0.0 /100 WBC Normal 0.0-0.2 [facility] Comment on above: Performed By: #### Sage PRYORJ #### Dell OLMOS, [facility] [address] [place] [address] 25137 Platelet mean volume Entitic volume (Bld) 9.7 fL Normal 8.5-12.2 [facility] Comment on above: Performed By: #### Sage PRYORJ #### Dell OLMOS, [facility] [address] [place] [address] 46925 Platelets #/vol (Bld) 286 10*3/uL Normal 150-393 [facility] Comment on above: Performed By: #### Sage PRYORJ #### Dell OLMOS, [facility] [address] [place] [address] 47888 RBC #/vol (Bld) 4.75 10*6/uL Normal 3.91-5.04 [facility] Comment on above: Performed By: #### Sage MCINTOSH #### Dell OLMOS, [facility] [address] [place] [address] 68743 RBC #/vol (Bld) 11.6 % Normal 10.8-14.[address] [facility] Comment on above: Performed By: #### Sage MCINTOSH #### Dell OLMOS, [facility] [address] [place] [address] 45512 SEGS + Bands,Absolute 3.77 K/uL Normal 1.64-7.28 [facility] Comment on above: Performed By: #### Sage MCINTOSH #### [facility] [address] [place] [address] 03081 WBC #/vol (Bld) 6.86 10*3/uL Normal 3.99-11.19 [facility] Comment on above: Performed By: #### Sage MCINTOSH #### Dell OLMOS, [facility] [address] [place] [address] 05826 CHEM 7 ED - CHRIon 8 Anion gap molar conc 12 mmol/L Normal 7-17 [facility] Comment on above: Performed By: #### Sage PRYORJ #### [facility] [address] [place] [address] 13564 Chloride molar conc 102 mmol/L Normal 98-108 [facility] Comment on above: Performed By: #### Sage MCINTOSH #### Dell OLMOS, [facility] [address] [place] [address] 81783 CO2 molar conc 28 mmol/L Normal 22-30 [facility] Comment on above: Performed By: #### Sage PRYORJ #### Dell OLMOS, [facility] [address] [place] [address] 51064 Creatinine mass conc 0.72 mg/dL Normal 0.50-1.20 [facility] Comment on above: Performed By: #### Sage MCINTOSH #### [facility] [address] [place] [address] 72603 Est GFR, >60 Normal >60 [facility] Comment on above: Performed By: #### C ALEXANDRUDFJ #### Dell OLMOS, [facility] [address] [place] [address] 43892 Est GFR,non >60 Normal >60 [facility] Comment on above: Performed By: #### C KONSTANTINJ #### Dell OLMOS, [facility] [address] [place] [address] 69710 Glucose mass conc 96 mg/dL Normal 70-99 [facility] Comment on above: Performed By: #### C KONSTANTINJ #### Dell OLMOS, [facility] [address] [place] [address] 36457 Osmolality 288 mOsm/kg Normal 278-305 [facility] Comment on above: Performed By: #### C KONSTANTINJ #### Dell OLMOS, [facility] [address] [place] [address] 00160 Potassium molar conc 3.9 mmol/L Normal 3.5-5.0 [facility] Comment on above: Performed By: #### C KOSNTANTINJ #### Dell OLMOS, [facility] [address] [place] [address] 86835 Sodium molar conc 138 mmol/L Normal 133-143 [facility] Comment on above: Performed By: #### C KONSTANTINJ #### Dell OLMOS, [facility] [address] [place] [address] 23066 Urea nitrogen mass conc 11 mg/dL Normal 7-22 [facility] Comment on above: Performed By: #### C ALEXANDRUDFJ #### Dell OLMOS, [facility] [address] [place] [address] 99809 Urea nitrogen/Creatinine mass ratio 15 mg/mg Normal [facility] Comment on above: Performed By: #### C KONSTANTINJ #### Dell OLMOS, [facility] [address] [place] [address] 39340 Hepatic Functions - CHRIon 1 08-22-2017 Albumin mass conc 4.3 g/dL Normal 3.5-5.0 [facility] Comment on above: Performed By: #### C BCDFJ #### Dell CCCT, [facility] [address] [place], [place] [address] ALP enzyme act/vol 100 U/L Normal 32-126 [facility] Comment on above: Performed By: #### C BCDFJ #### Dell CCCT, [facility] [address] [place], [place] [address] ALT enzyme act/vol 77 U/L High 9-48 [facility] Comment on above: Performed By: #### C ALEXANDRUDFJ #### [facility] [address] [place], [place] [address] AST enzyme act/vol 34 U/L Normal 14-40 [facility] Comment on above: Performed By: #### C ALEXANDRUDFJ #### [facility], [facility] [address] [place], [place] [address] Bilirubin mass conc 0.4 mg/dL Normal <1.5 [facility] Comment on above: Performed By: #### C ALEXANDRUDFJ #### [facility], [facility] [address] [place] [address] 94010 Bilirubin.direct mass conc 0.1 mg/dL Normal <0.3 [facility] Comment on above: Performed By: #### C ALEXANDRUDFJ #### [facility], [facility] [address] [place], [place] [address] Protein mass conc 7.0 g/dL Normal 6.4-8.3 [facility] Comment on above: Performed By: #### C ALEXANDRUDFJ #### [facility] [address] [place] [address] 62264 Vital Signs Date Time Vital Sign Value Performing Clinician Facility 08-20-2023 19:52-0500 Body temperature 99 [degF] Sindy Cheri DO Work Phone: [facility] 08-20-2023 19:52-0500 Body weight 70.76 kg Sindy Cheri DO Work Phone: [employer] 08-20-2023 19:52-0500 Diastolic blood pressure 89 mm[Hg] Sindy Guadalupe DO Work Phone: [employer] 08-20-2023 19:52-0500 Heart rate 69 /min Sindy Guadalupe DO Work Phone: [employer] 08-20-2023 19:52-0500 Respiratory rate 18 /min Sindy Guadalupe DO Work Phone: [employer] 08-20-2023 19:52-0500 SaO2% (BldA) [Mass fraction] 100 % Sindy Guadalupe DO Work Phone: [employer] 08-20-2023 19:52-0500 Systolic blood pressure 116 mm[Hg] Sindy Guadalupe DO Work Phone: [employer] 12-24-2021 19:14-0400 Diastolic blood pressure 75 mm[Hg] Danika Wescurt HU Work Phone: [facility] Work Phone: 12-24-2021 19:14-0400 Heart rate 72 /min Danika Wes HU Work Phone: [facility] Work Phone: 12-24-2021 19:14-0400 Systolic blood pressure 119 mm[Hg] Danika Harvey CNP Work Phone: [facility] Work Phone: 12-24-2021 18:56-0400 Body height 165.1 cm Danika Harvey CNP Work Phone: [facility] Work Phone: 12-24-2021 18:56-0400 Body mass index (BMI) [Ratio] 31.4 kg/m2 Danika Harvey CNP Work Phone: [facility] Work Phone: 12-24-2021 18:56-0400 Body surface area Derived from formula 1.93 m2 Danika Harvey CNP Work Phone: [facility] Work Phone: 12-24-2021 18:56-0400 Body temperature 97.7 [degF] Danika Harvey CNP Work Phone: [facility] Work Phone: 12-24-2021 18:56-0400 Body weight 85.64 kg Danika Harvey CNP Work Phone: [facility] Work Phone: 12-24-2021 18:56-0400 Diastolic blood pressure 90 mm[Hg] Danika Harvey CNP Work Phone: [facility] Work Phone: 12-24-2021 18:56-0400 Heart rate 70 /min Danika Harvey CNP Work Phone: [facility] Work Phone: 12-24-2021 18:56-0400 SaO2% (BldA) [Mass fraction] 99 % Danika Harvey CNP Work Phone: [facility] Work Phone: 12-24-2021 18:56-0400 Systolic blood pressure 130 mm[Hg] Danika Harvey CNP Work Phone: [facility] Work Phone: Encounters Encounter Date Encounter Type Care Provider Facility Start: 08-20-2023 End: 08-20-2023 Emergency department patient visit UNKNOWN PROVIDER Facility:[facility] Start: 08-20-2023 End: 08-20-2023 Emergency department patient visit Sindy Guadalupe DO Work Phone: [facility] Emergency Medicine Comment on above: Abdominal pain (Said she was moving a bed at work and had sudden onset of 7/10 pain in abd wrapping around to back) Start: 12-24-2021 End: 12-24-2021 FQ visit, estab pt Karla Tse LPCC-S Work Phone: [facility] Work Phone: Start: 12-24-2021 End: 12-24-2021 FQ visit new patient Danika Harvey MAYTE Work Phone: [facility] Work Phone: Start: 08-17-2018 Patient encounter procedure TAMI IBANEZ [facility] Start: 06-22-2018 End: 06-23-2018 Evaluation and management of inpatient OTHER: [facility] [place] [facility] Procedures Date Procedure Procedure Detail Performing Clinician Start: 12-24-2021 Antibody hiv-1&hiv-2 single result Danika Georgecurt HU Work Phone: Start: 12-24-2021 Appendectomy Danika George er [employer] Work Phone: Start: 12-24-2021 section Danika Harvey [employer] Work Phone: Start: 12-24-2021 Cholecystectomy Danika Harvey [employer] Work Phone: Start: 12-24-2021 Dilation and curettage Danika Harvey [employer] Work Phone: Start: 12-24-2021 Gluc bld gluc mntr d ev cleared fda spec home use Danika Harvey [employer] Work Phone: Start: 12-24-2021 Hysterectomy Danika George er [employer] Work Phone: Start: 12-24-2021 Laparoscopic cholecystectomy Danika Georgecurt HU Work Phone: Start: 12-24-2021 Most recent hemoglob in a1c level < 7.0% Danika Harvey [employer] Work Phone: Start: 12-24-2021 Psychotherapy w/rose mary ent 30 minutes Karla Tse LPCC-S Work Phone: Start: 12-24-2021 Tonsillectomy Danika perla MAYTE Work Phone: Plan of Treatment Date Care Activity Detail Author Start: 10-23-2037 Shingles (RZV) Vaccine (1 of 2) Shingles (RZV) Vaccine (1 of 2) [facility] Start: 01-27-2022 FQHC visit, estab pt Medical Established Patient [facility] Work Phone: Start: 12-24-2021 CBC W Auto Differential panel - Blood [facility] Start: 12-24-2021 Lipid 1996 panel - Serum or Plasma LIPID PROFILE [facility] Start: 10-23-2014 HPV Vaccine (optional start 27-45 years) HPV Vaccine (optional start 27-45 years) [facility] Start: 10-23-2008 Screening for malignant neoplasm of cervix Pap Smear [facility] Start: 10-23-2005 Hepatitis C screening Hepatitis C Antibody [facility] Start: 10-23-2005 Tetanus + diphtheria + acellular pertussis vaccine (product) Tdap Booster [facility] Start: 1987 Hepatitis B vaccination Hepatitis B (HBV) Vaccine (1 of 3 - 3-dose series) [facility] Start: 1987 Screening for malignant neoplasm of breast Mammography shared decision making (35 through 39 years) [facility] Immunizations Immunization Date Immunization Notes Care Provider Conrado cordova 08-13-2023 influenza, injectabl e, quadrivalent, preservative free Sindy Guadalupe DO Work Phone: [facility] 08-13-2023 Pfizer COVID-19 Vacc ine (12+ yrs, Formulation) mRNA, spike protein, LNP, pres. free, 30 mcg/0.3mL dose, malka-sucrose (QLJ=706) Sindy Guadalupe DO Work Phone: [facility] Payers Date Payer Category Payer Unknown [facility] [place] [employer] [id number] 2023-Present [id number] 2018 Medicaid [id number] 2017 Unknown [id number] 1987 Unknown [id number] 1987 Unknown [id number] 1987 Unknown [id number] Social History Date Type Detail Facility Assertion Currently not se xually active (finding) [facility] Work Phone: Assertion Gender identity finding (finding) [facility] Work Phone: Assertion Finding of sexua l orientation (finding) [facility] Work Phone: Tobacco smoking status Unknown if ever smoked [facility] Work Phone: Start: 1985 Sex Assigned At Not on file [facility] Gender identity Not on file [facility] NEGATED: Highlighted row Assertion Current drinker of alcohol (finding) [facility] Work Phone: NEGATED: Highlighted row Assertion Finding relating to drug misuse behavior (finding) [facility] Work Phone: NEGATED: Highlighted row Assertion Exposure to pollution (event) [facility] Work Phone: NEGATED: Highlighted row Assertion [facility] Work Phone: Mental Status Date Assessment Result Facility Cognitive function No suicidal i deation Suicidal thoughts (finding) [facility] Work Phone: Clinical Notes 12-24-2021 to 08-20-2023 Sindy Guadalupe, - 08/20/2023 8:19 PM Sindy Kwon DO - 08/20/2023 8:19 PM ESTDischarge InstructionsAttachments Note Date & Type Note Facility 08-20-2023 Physician Emergen cy department Note EMERGENCY DEPARTMENT - VISIT NOTE Date: 08/20/2023 Patient: Lang Ash Triage: Patient presents with: Abdominal pain - Said she was moving a bed at work and had sudden onset of 7/10 pain in abd wrapping around to back HISTORY OF PRESENT ILLNESS 08/20/2023, 8:19 PM. The history is provided by the Patient. Lang Ash is a 37 year old female who presents to the ED for right sided abdominal pain after moving heavy patient bed without wheels. Onset ~1500 today Worse with palpation Has some associated right low back pain. No fall or other trauma. Saw some urgent care work comp clinic she was referred to initially and completed initial work comp papers. Now seeking care here for persistent pain. No meds taken. No prior injury/back pain. REVIEW OF SYSTEMS The following systems were reviewed: All other pertinent ROS negative except as noted in HPI -- PAST HISTORY ----- Past Medical History: Denies Past Surgical History: Abd surg x4, hys, appendix Social History: Social History Socioeconomic History Marital status: Single Social Determinants of Health Financial Resource Strain: Low Risk (09/30/2018) Received from [facility] Overall Financial Resource Strain (CARDIA) Difficulty of Paying Living Expenses: Not hard at all Food Insecurity: No Food Insecurity (03/23/2023) Received from [facility] Hunger Screening Within the past 12 months we worried whether our food would run out before we got money to buy more.: Never True Within the past 12 months the food we bought just didn't last and we didn't have money to get more.: Never True Transportation Needs: No Transportation Needs (09/30/2018) Received from [facility] PRAPARE - Transportation Lack of Transportation (Medical): No Lack of Transportation (Non-Medical): No Physical Activity: Insufficiently Active (09/30/2018) Received from [facility] Exercise Vital Sign Days of Exercise per Week: 3 days Minutes of Exercise per Session: 30 min Stress: Stress Concern Present (09/30/2018) Received from [facility] [place] [employer] - Occupational Stress Questionnaire Feeling of Stress : To some extent Social Connections: Moderately Isolated (09/30/2018) Received from [facility] Social Connection and Isolation Panel [NHANES] Frequency of Communication with Friends and Family: Twice a week Frequency of Social Gatherings with Friends and Family: Three times a week Attends Sabianist Services: Never Active Member of Clubs or Organizations: No Attends Club or Organization Meetings: Never Marital Status: Medications: The patient's home medications have been reviewed. Allergies: Bactroban [mupirocin], Benadryl [diphenhydramine], and Vistaril [atazine] PHYSICAL EXAM ---- Blood Pressure 116/89 Pulse 69 Temperature 99 F (37.2 C) (Oral) Respiration 18 Weight 156 lb (70.8 kg) Oxygen Saturation 100% Constitutional: Alert, awake HENT: mucous membranes moist Eyes: no discharge, nonicteric Neck: neck supple, trachea midline Lungs: no respiratory distress Heart: RRR , no peripheral edema Abdomen: Soft, nontender, ND, no masses, no rebound/guarding, no peritoneal signs Extremities: normal peripheral perfusion Neuro: Alert and oriented, normal speech, ALONZO, ambulates Skin: warm and dry Psych: cooperative, appropriate thought content and judgement ----- ED COURSE -------- ED Medications: Medications ketorolac (TORADOL) 15 MG/ML injection (has no administration in time range) cyclobenzaprine (FLEXERIL) tablet (has no administration in time range) MEDICAL DECISION MAKING Vital Signs: Reviewed the patient s vital signs. Nursing Notes: Reviewed and utilized the nursing notes. Nursing triage and assessment notes reviewed and incorporated. Nature of the Problem: New problem to patient ED Physician Core Measures: None indicated Additional Medical Decision Making: Evaluation w/ HPI, physical exam, labs and studies as above. Presents with right low back pain and right lower abdominal wall pain after lifting. No fall. No prior hx of hernia. No abd wall bulging. Educated on supportive care. Start NSAIDS/flexeril for suspected MSK etiology. Although not representing an exhaustive list of the differential diagnoses considered in this patient, to a reasonable degree of clinical confidence, HPI, PE, and studies not consistent with Appendicitis/cholecystis/hepatitis/pa ncreatitis/sbo/ileus/perf/vovulus/isc hemia/ovarian torsion/TOA/ectopic and I have low suspicion for these etiologies at this time. Management Decisions: CT considered but not performed due to no clinical evidence of strangulated or palpable hernia Shared decision making used to decide treat symptoms w/ NSAIDS and flexeril (pt tolerated this well before) ED prescription drug management decision making: Medications prescribed - see visit medications. IMPRESSION AND DISPOSITION IMPRESSION Abdominal wall strain, initial encounter (Primary Diagnosis) [640445] Low back strain, initial encounter [044429] Medical Screening Exam: The patient has received a medical screening examination and within reasonable clinical confidence an emergency medical condition was identified and treated appropriately DISPOSITION Discharge home ED Prescriptions: New Prescriptions CYCLOBENZAPRINE (FLEXERIL) 10 MG TABLET Take 1 Tablet by mouth 3 times daily as needed for Muscle spasms. IBUPROFEN (MOTRIN) 800 MG TABLET Take 1 Tablet by mouth every 8 hours as needed for Pain. - COUNSELING Counseling: Spoke with the patient and discussed today s findings, in addition to providing specific details for the plan of care and counseling regarding the diagnosis and prognosis. She was given the opportunity to ask questions. Discussed the return indications and importance of follow-up. Advised to follow-up with Work comp clinic. Advised to return to the ED for changing/worsening symptoms, new symptoms, complaint specific precautions, and precautions listed on the pts discharge paperwork. Educated on the common potential side effects of medication to be prescribed. Sindy Guadalupe D.O. Attending Physician Department of Emergency Medicine [address] [place] [address] [facility] 08-20-2023 Emergency department Note For matting of this note is different from the original. EMERGENCY DEPARTMENT - VISIT NOTE Date: 08/20/2023 Patient: Lang Ash Triage: Patient presents with: Abdominal pain - Said she was moving a bed at work and had sudden onset of 7/10 pain in abd wrapping around to back HISTORY OF PRESENT ILLNESS 08/20/2023, 8:19 PM. The history is provided by the Patient. Lang Ash is a 37 year old female who presents to the ED for right sided abdominal pain after moving heavy patient bed without wheels. Onset ~1500 today Worse with palpation Has some associated right low back pain. No fall or other trauma. Saw some urgent care work comp clinic she was referred to initially and completed initial work comp papers. Now seeking care here for persistent pain. No meds taken. No prior injury/back pain. REVIEW OF SYSTEMS The following systems were reviewed: All other pertinent ROS negative except as noted in HPI -- PAST HISTORY ----- Past Medical History: Denies Past Surgical History: Abd surg x4, hys, appendix Social History: Social History Socioeconomic History Marital status: Single Social Determinants of Health Financial Resource Strain: Low Risk (09/30/2018) Received from [facility] Overall Financial Resource Strain (CARDIA) Difficulty of Paying Living Expenses: Not hard at all Food Insecurity: No Food Insecurity (03/23/2023) Received from [facility] Hunger Screening Within the past 12 months we worried whether our food would run out before we got money to buy more.: Never True Within the past 12 months the food we bought just didn't last and we didn't have money to get more.: Never True Transportation Needs: No Transportation Needs (09/30/2018) Received from [facility] PRAPARE - Transportation Lack of Transportation (Medical): No Lack of Transportation (Non-Medical): No Physical Activity: Insufficiently Active (09/30/2018) Received from [facility] Exercise Vital Sign Days of Exercise per Week: 3 days Minutes of Exercise per Session: 30 min Stress: Stress Concern Present (09/30/2018) Received from [facility] Citizen [place] [employer] - Occupational Stress Questionnaire Feeling of Stress : To some extent Social Connections: Moderately Isolated (09/30/2018) [facility] [facility] Social Connection and Isolation Panel [NHANES] Frequency of Communication with Friends and Family: Twice a week Frequency of Social Gatherings with Friends and Family: Three times a week Attends Sabianist Services: Never Active Member of Clubs or Organizations: No Attends Club or Organization Meetings: Never Marital Status: Medications: The patient's home medications have been reviewed. Allergies: Bactroban [mupirocin], Benadryl [diphenhydramine], and Vistaril [atazine] PHYSICAL EXAM ---- Blood Pressure 116/89 Pulse 69 Temperature 99 F (37.2 C) (Oral) Respiration 18 Weight 156 lb (70.8 kg) Oxygen Saturation 100% Constitutional: Alert, awake HENT: mucous membranes moist Eyes: no discharge, nonicteric Neck: neck supple, trachea midline Lungs: no respiratory distress Heart: RRR , no peripheral edema Abdomen: Soft, nontender, ND, no masses, no rebound/guarding, no peritoneal signs Extremities: normal peripheral perfusion Neuro: Alert and oriented, normal speech, ALONZO, ambulates Skin: warm and dry Psych: cooperative, appropriate thought content and judgement ----- ED COURSE -------- ED Medications: Medications ketorolac (TORADOL) 15 MG/ML injection (has no administration in time range) cyclobenzaprine (FLEXERIL) tablet (has no administration in time range) MEDICAL DECISION MAKING Vital Signs: Reviewed the patient s vital signs. Nursing Notes: Reviewed and utilized the nursing notes. Nursing triage and assessment notes reviewed and incorporated. Nature of the Problem: New problem to patient ED Physician Core Measures: None indicated Additional Medical Decision Making: Evaluation w/ HPI, physical exam, labs and studies as above. Presents with right low back pain and right lower abdominal wall pain after lifting. No fall. No prior hx of hernia. No abd wall bulging. Educated on supportive care. Start NSAIDS/flexeril for suspected MSK etiology. Although not representing an exhaustive list of the differential diagnoses considered in this patient, to a reasonable degree of clinical confidence, HPI, PE, and studies not consistent with Appendicitis/cholecystis/hepatitis/pa ncreatitis/sbo/ileus/perf/vovulus/isc hemia/ovarian torsion/TOA/ectopic and I have low suspicion for these etiologies at this time. Management Decisions: CT considered but not performed due to no clinical evidence of strangulated or palpable hernia Shared decision making used to decide treat symptoms w/ NSAIDS and flexeril (pt tolerated this well before) ED prescription drug management decision making: Medications prescribed - see visit medications. IMPRESSION AND DISPOSITION IMPRESSION Abdominal wall strain, initial encounter (Primary Diagnosis) [205839] Low back strain, initial encounter [[id number]] Medical Screening Exam: The patient has received a medical screening examination and within reasonable clinical confidence an emergency medical condition was identified and treated appropriately DISPOSITION Discharge home ED Prescriptions: New Prescriptions CYCLOBENZAPRINE (FLEXERIL) 10 MG TABLET Take 1 Tablet by mouth 3 times daily as needed for Muscle spasms. IBUPROFEN (MOTRIN) 800 MG TABLET Take 1 Tablet by mouth every 8 hours as needed for Pain. - COUNSELING Counseling: Spoke with the patient and discussed today s findings, in addition to providing specific details for the plan of care and counseling regarding the diagnosis and prognosis. She was given the opportunity to ask questions. Discussed the return indications and importance of follow-up. Advised to follow-up with Work comp clinic. Advised to return to the ED for changing/worsening symptoms, new symptoms, complaint specific precautions, and precautions listed on the pts discharge paperwork. Educated on the common potential side effects of medication to be prescribed. Sindy Guadalupe D.O. Attending Physician Department of Emergency Medicine [address] [place] [id number] documented in this encounter [facility] 08-20-2023 Hospital Discharg e instructions Sindy Guadalupe DO - 08/20/2023 8:14 PM EST Abdominal Pain Instructions: Return to the ED if the stomach pain worsens, is still there in 12-24 hours, if it moves to the right lower part of the stomach, or if you can't keep down liquids Procedures done during this visit: None The following attachments cannot be sent through Care Everywhere.Strengthening Your Lower Body and Core (Rwandan)Muscle strain (Rwandan)documented in this encounter [facility] 12-24-2021 Evaluation note Includes: Assessments for all patient encounters Findings Bipolar I disorder, most rec ent episode Established Patient with Karla Carmencita [facility] 12/24/2021 Complex post-traumatic stres s disorder Established Patient with Karla Tse [facility] 12/24/2021 Assessment of body mass inde x [Body mass index [BMI] 31.0-31.9, adult] Medical New Patient with Danika Harvey [employer] 12/24/2021 Diabetes Risk Test Score was five score 12/24/2021 Medical New Patient with Danika Harvey [employer] 12/24/2021 Psychiatric disorders depression, PTSD, anxiety, bipolar, schizophrenic tendancies Medical New Patient with Danika Georgeer [employer] 12/24/2021 Screening for diabetes mellitus Medical New Patient with Danika Wes [employer] 12/24/2021 Screening for HIV Medical New Patient with Danika Georgeer [employer] 12/24/2021 [facility] Work Phone: [phone]) 751-693505-25-2022 History general Narrative - Reported Includes: Medical History in patient's chart Description Last Updated History of extraction of wisdom tooth hx of kidney stones 12/24/2021 History of gynecologic disorder endometr iosis 12/24/2021 History of obstetrical disorder / condit ion 5 children 12/24/2021 History of systemic hypertension 022 Recent immunization for flu 12/24/2021 [facility] Work Phone: Evaluation note* Diagnosis Abdominal wall strain, initial encounter- Primary Low back strain, initial encounter [facility] History of Present Illness not supported for this document type No History of Present [facility]ed[facility] Work Phone: Instructions Instructions not supported for this document type No Instructions [facility]edTri[facility] Work Phone: Patient problem outcome Narrative Includes: Evaluations & Outcomes for active Goals No Outcomes RecordedTri[facility] Work Phone: Reason for referral (narrative)No Reason for Referral RecordedTri[facility] Work Phone: Review of systems Narrative - Reported Review of Systems not supported for this document type No Review of Systems [facility]edTri[facility] Work Phone: Summary Purpose Family History No Family History Records Found Description Last Updated mother has fibromyalgia and brittle bone disease 12/24/2021 Family history of ischemic heart disease maternal grandmother CHF 12/24/2021 Family history of oncologic disorder mat ernal uncle colon cancer 12/24/2021 Fraternal history of psychia tric disorders bipolar, PTSD, schizophrenia, anxiety disorder 12/24/2021 Maternal history of depression Maternal history of psychiatric disorder s bipolar 12/24/2021 Maternal history of stroke syndrome 12/01 Maternal history of type 2 diabetes levi itus 12/24/2021 Paternal history of oncologic disorder L arge cell squamous lung cancer 12/24/2021 Advance Directives No Advanced Directives Records Found Includes: Current Advance Directives No Advance Directives Recorded Includes: Current Advance Directives No Advance Directives RecordedNo Advanced Directives Records Found Physical Exam Physical Exam not supported for this document type No Physical Exam Recorded Physical Exam not supported for this document type No Physical Exam Recorded Additional Source Comments INFORMATION SOURCE (unrecogn ized section and content) DATE CREATED AUTHOR 08/22/2018 [facility] DATE CREATED AUTHOR AUTHOR'S ORGANIZ ATION 09/04/2023 [employer] Reason for Visit (unrecogniz ed section and content) Reason Comments Abdominal pain Said she was moving a bed at work and had sudden onset of 7/10 pain in abd wrapping around to back Scheduled Active and Recently Administ ered Medications (unrecognized section and content) Medication Order 08/18/2023 08/19/2023 08/20/2023 cyclobenzaprine (FLEXERIL) tablet (COMPLETED) 10 mg, Oral, ONCE, 1 dose, On Wed08/20/23 at 2043 2045 (Given - Provid er: Adam Canales RN) ketorolac (TORADOL) 15 MG/ML injection (COMPLETED) 15 mg, Intramuscular, STAT, 1 dose, On Wed08/20/23 at 2043 2045 (Given - Provid er: Adam Canales RN) FOR RECORDS PERTAINING TO PATIENTS WHO ARE OR HAVE BEEN ENROLLED IN A CHEMICAL DEPENDENCY/SUBSTANCEABUSE PROGRAM, SOME INFORMATION MAY BE OMITTED. This clinical summary was aggregated from multiple sources. Caution should be exercised in using it in the provision of clinical care. This summary normalizes information from multiple sources, and as a consequence, information in this document may materially change the coding, format and clinical context of patient data. In addition, data may be omitted in some cases. CLINICAL DECISIONS SHOULD BE BASED ON THE PRIMARY CLINICAL RECORDS. [facility] [employer] [facility]. provides no warranty or guarantee of the accuracy or completeness of information in this document.
[2023-10-22 21:07] VITALS: BP 120/77; PULSE 74; RESP 16; O2SAT 100
== END 2023-10-22 21:08 | disposition home or self-care (01) ==
PROVIDERS: Physician Assistant; Emergency Provider Emergency Medicine
DX: J06.9 Acute upper respiratory infection, unspecified (principal); Z20.822 Contact with and (suspected) exposure to COVID-19; F17.210 Nicotine dependence, cigarettes, uncomplicated; Z79.899 Other long term (current) drug therapy
CPT/HCPCS: 87804; 87811; 96372; 99284; J1100

== ENCOUNTER 2025-03-17 19:45 | Emergency (ER) | payer OTHER, SELFPAY ==
[2025-03-17 19:49] VITALS: BP 126/72; PULSE 72; TEMP 37; O2SAT 98; BMI 30.3
--- OUTSIDE RECORDS SUMMARY | 2025-03-17 19:51 | XMS_ITS | Clinical Summary ---
Author Organization [employer] tem Address [id number] [address] [place] [address] Care Team Providers Care Felt Machine Mechanic Name Role Phone No Pcp, No Pcp Primary Care Provider Unavailabl e Allergies Active Allergy Reactions Criticality Noted Date Comments Sulfamethoxazole-Trimethoprim 2021 Mupirocin 12/13/2021 Diphenhydramine Hcl Hives 02/12/2022 Citalopram 12/13/2021 Lamotrigine 12/13/2021 Lurasidone 01/27/2023 Hydroxyzine Pamoate 11/14/2022 Cetirizine 05/29/2024 Medications clotrimazole (LOTRIMIN) 1 % cream Apply to affected area 2 times daily for a week 15 g 01/08/2025 Active Active Problems Problem Noted Date Diagnosed Date Bipolar 1 disorder 01/14/2022 Cholelithiasis 06/22/2018 PTSD (post-traumatic stress disorder) 06/22/2018 Bipolar I disorder, most rec ent episode (or current) depressed, severe, specified as with psychotic behavior 04/27/2014 Resolved Problems Problem Noted Date Diagnosed Date Resolved Date Anxiety 06/22/2018 02/01/2024 Encounters Date Type Department Care Team Description 03/16/2025 10:58 PM EDT - 03/17/2025 1:46 AM EDT Emergency [facility] - Emergency [address] [place] [phone] Salma Patel MD Chest pain, unspecified type (Primary Dx) Discharge Disposition: Home 03/16/2025 Travel 01/18/2025 5:00 PM EDT - 01/18/2025 5:55 PM EDT Emergency [facility] - Emergency Department [address] [place] [phone] Viral illness (Primary Dx); Vaginal odor Discharge Disposition: Home 01/18/2025 Travel 01/08/2025 9:13 AM EDT - 01/08/2025 9:53 AM EDT Emergency [facility] - Emergency [address] [place] [phone] Herman Carter MD Tresa albicans infection (Primary Dx) Discharge Disposition: Home 01/08/2025 Travel 12/31/2024 7:11 PM EDT - 12/31/2024 7:58 PM EDT Emergency [facility] - Emergency [address] [place] [phone] Herman Carter MD STD exposure (Primary Dx); Viral URI Discharge Disposition: Home 12/31/2024 Travel from Last 3 Months Immunizations Immunization Administration Dates Next Due COVID-19, mRNA, LNP-S, PF, 1 00mcg/0.5mL Dose 07/03/2021,11/27/2020,10/29/2020 Influenza, Injectable, quadrivalent (PF) 021 Family History Medical History Relation Name Comments Diabetes Mother Vale Stubbs Mental illness Mother Vale Stubbs Ulcerative colitis Mother Vale Stubbs Relation Name Status Comments Mother Vale Stubbs Alive Social History Tobacco Use Types Packs/Day Years Used Date Smoking Tobacco: Former Cigarettes 0.5 9 Smokeless Tobacco: Never Tobacco Cessation:Counseling Given: Not Answered Alcohol Use Standard Drinks/Week Comments Not Currently 0 (1 standard drink = 0.6 oz pur e alcohol) PHQ-2 Answer Date Recorded Total Score 19 09/24/2022 Childcare Answer Date Recorded Childcare Unknown 01/11/2019 Employment Answer Date Recorded Employment Unknown 01/11/2019 Hunger Screening Answer Date Recorded Within the past 12 months we worried whether our food would run out before we got money to buy more. Never True 03/16/2025 Within the past 12 months th e food we bought just didn't last and we didn't have money to get more. Never True 03/16/2025 Purpose - Life Answer Date Recorded Purpose and direction in life Unknown Comments No Sex and Gender Information Value Date Recorded Sex Assigned at Female 02/08/2023 1:09 PM EDT Legal Sex Female 11:37 AM EDT Gender Identity Female 02/08/2023 1:09 PM EDT Sexual Orientation Straight 02/08/2023 1: 09 PM EDT Last Filed Vital Signs Vital Sign Reading Time Taken Comments Blood Pressure 99/71 03/17/2025 1:30 AM EDT Pulse 59 03/17/2025 1:30 AM EDT Temperature 36.8 C (98.2 F) 03/16/2025 11:04 PM EDT Respiratory Rate 16 03/17/2025 1:30 AM EDT Oxygen Saturation 100% 03/17/2025 1:30 AM EDT Inhaled Oxygen Concentration - - Weight 82.6 kg (182 lb) 03/16/2025 11:02 PM EDT Height 162.6 cm (5' 4 ) 03/16/2025 11:02 PM EDT Body Mass Index 31.24 03/16/2025 11:02 PM EDT Plan of Treatment Health Maintenance Due Date Last Done Comments DTaP,Tdap and Td Vaccines (1 - Tdap) 10/23/2006 Depression Screening 09/24/2023 09/24/2022 COVID-19 Vaccine (2023-2 5 season) 2024 08/13/2023, 07/03/2021, 11/27/2020, Additional history exists Adult BMI Follow Up Plan 01/31/2025 02/01/2024 Pap Smear 02/12/2025 02/12/2022 Influenza Vaccine 04/02/2025 08/13/2023, 06/19/2021 Adult BMI Screening 03/16/2026 03/16/2025 Tobacco Screening 03/16/2026 03/16/2025 Medical Devices Not on file Procedures Procedure Name Priority Date/Time Associated Diagnosis Comments TROP I, HIGH SENSITIVITY 1 HOUR STAT 03/17/2025 12:41 AM EDT TROPONIN I, HIGH SENSITIVITY 0 HOUR STAT 03/16/2025 11:39 PM EDT TROPONIN I, HIGH SENSITIVITY 0 HOUR STAT 03/16/2025 11:39 PM EDT D-DIMER STAT 03/16/2025 11:39 PM EDT B-TYPE NATRIURETIC PEPTIDE STAT 03/16/2025 11:39 PM EDT COMPREHENSIVE METABOLIC PANEL STAT 03/16/2025 11:39 PM EDT CBC WITH AUTO DIFFERENTIAL STAT 03/16/2025 11:39 PM EDT ECG 12-LEAD STAT 03/16/2025 11:03 PM EDT POCT , URINE (NUCG) Routine 01/08/2025 9:38 AM EDT POCT NURSING URINE MACROSCOPIC UA Routine 01/08/2025 9:36 AM EDT ER EXTRA URINE CULTURE STAT 9:27 AM EDT ER EXTRA URINE STAT 01/08/2025 9:27 AM EDT URINE CULTURE STAT 01/08/2025 9:27 AM EDT ER EXTRA URINE CULTURE STAT 7:57 PM EDT ER EXTRA URINE STAT 12/31/2024 7:57 PM EDT CHLAMYDIA/GONORRHOEAE BY PCR, URINE STAT 12/31/2024 7:57 PM EDT POCT NURSING URINE MACROSCOPIC UA Routine 12/31/2024 7:41 PM EDT PAP SMEAR Routine 02/12/2022 11:49 AM EDT Encounter for annual physical exam from Last 3 Months or Most Recently Relevant to Health Maintenance Results * Troponin I, High Sensitivity 1 Hour (03/17/2025 12:41 AM EDT) TROPONIN I, HIGH SENSITIVITY 3 <16 ng/L 03/17/2025 1:14 AM EDT [facility] Blood Venous blood / Unknown Venipuncture / Unknown 03/17/2025 12:41 AM EDT 03/17/2025 12:45 AM EDT Salma Patel MD LAB BLOOD ORDERABLES Final Re sult [address] [place] [address], [place] * Troponin I, High Sensitivity 0 Hour (03/16/2025 11:39 PM EDT) TROPONIN I, HIGH SENSITIVITY 2 <16 ng/L 03/17/2025 12:12 AM EDT [facility] Blood Venous blood / Unknown Venipuncture / Unknown 03/16/2025 11:39 PM EDT 03/16/2025 11:41 PM EDT Salma Patel MD LAB BLOOD ORDERABLES Final Re sult Performing Organization Address City/[facility]/ZIP Co de Phone Number [address] [place] [address], [place] * CBC auto differential (03/16/2025 11:39 PM EDT) WBC 7.1 4 - 11 x10E9/L 03/16/2025 11:46 PM EDT [facility] RBC Count 4.40 3.8 - 5.2 X10E12/L 03/16/2025 11:46 PM EDT [facility] Hemoglobin 12.5 11.7 - 15.5 g/dL 03/16/2025 11:46 PM EDT [facility] Hematocrit 37.1 35 - 47 % 03/16/2025 11:46 PM EDT [facility] MCV 84 80 - 100 fL 03/16/2025 11:46 PM EDT [facility] MCH 28.4 27 - 34 pg 03/16/2025 11:46 PM EDT [facility] MCHC 33.6 32 - 36 g/dL 03/16/2025 11:46 PM EDT [facility] RDW 13.2 11.5 - 15 % 03/16/2025 11:46 PM EDT [facility] Platelet Count 284 150 - 450 X10E9/L 03/16/2025 11:46 PM EDT [facility] MPV 8.0 7 - 12 fL 03/16/2025 11:46 PM EDT [facility] Neutrophils % 58.4 % 03/16/2025 11:46 PM EDT [facility] Lymphocytes % 29.0 % 03/16/2025 11:46 PM EDT [facility] Monocytes % 6.4 % 03/16/2025 11:46 PM EDT [facility] Eosinophils % 5.5 % 03/16/2025 11:46 PM EDT [facility] Basophils % 0.7 % 03/16/2025 11:46 PM EDT [facility] Neutrophils Absolute (A) 4.2 1.5 - 6.6 10*3/uL 03/16/2025 11:46 PM EDT [facility] Lymphocytes Absolute 2.1 1.0 - 3.5 10*3/uL 03/16/2025 11:46 PM EDT [facility] Monocytes Absolute 0.5 0.0 - 0.9 10*3/uL 03/16/2025 11:46 PM EDT [facility] Eosinophils Absolute 0.4 0.0 - 0.4 10*3/uL 03/16/2025 11:46 PM EDT [facility] Basophils Absolute 0.0 0.0 - 0.2 10*3/uL 03/16/2025 11:46 PM EDT [facility] Differential Type AUTOMATED DIFFERENTIAL 03/16/2025 11:46 PM EDT [facility] Blood Venous blood / Unknown Venipuncture / Unknown 03/16/2025 11:39 PM EDT 03/16/2025 11:41 PM EDT us Salma Patel MD LAB BLOOD ORDERABLES Final Re sult Performing Organization Address [facility] de Phone Number [address] [place] [address], [place] * D-Dimer (03/16/2025 11:39 PM EDT) D DIMER <150 1 - 255 ug/mL 03/16/2025 11:59 PM EDT [facility] Comment:Results <255 ng/mL D DU: The presensence of a VTE can safely be excluded with a negative D-Dimer result and Wells score. A negative result doesn't exclude the possibility of DIC. The test should be repeated along with other diagnostic tests if the patient's symptoms persist or worsen. Blood Venous blood / Unknown Venipuncture / Unknown 03/16/2025 11:39 PM EDT 03/16/2025 11:41 PM EDT us Salma Patel MD LAB BLOOD ORDERABLES Final Re sult Performing Organization Address [facility] de Phone Number [address] [place] [address], [place] * B-type natriuretic peptide (03/16/2025 11:39 PM EDT) BNP 16 <=100 pg/mL 03/17/2025 12:14 AM EDT [facility] Blood Venous blood / Unknown Venipuncture / Unknown 03/16/2025 11:39 PM EDT 03/16/2025 11:41 PM EDT us Salma Patel MD LAB BLOOD ORDERABLES Final Re sult [facility] [address] [place] [address], * (ABNORMAL) Comprehensive metabolic panel (03/16/2025 11:39 PM EDT) SODIUM 138 134 - 146 mmol/L 03/17/2025 12:04 AM EDT [facility] POTASSIUM 3.2(L) 3.5 - 5.0 mmol/L 03/17/2025 12:04 AM EDT [facility] CHLORIDE 105 98 - 109 mmol/L 03/17/2025 12:04 AM EDT [facility] CARBON DIOXIDE 26 22 - 32 mmol/L 03/17/2025 12:04 AM EDT [facility] ANION GAP 7 5 - 15 mmol/L 03/17/2025 12:04 AM EDT [facility] BLOOD UREA NITROGEN 13 5 - 23 mg/dL 03/17/2025 12:04 AM EDT [facility] CREATININE 0.68 0.40 - 1.00 mg/dL 03/17/2025 12:04 AM EDT [facility] Comment:METHOD TRACEABLE TO IDMS STANDARD GLUCOSE 99 65 - 99 mg/dL 03/17/2025 12:04 AM EDT [facility] CALCIUM 9.3 8.5 - 10.5 mg/dL 03/17/2025 12:04 AM EDT [facility] TOTAL PROTEIN 6.5 6.0 - 8.0 g/dL 03/17/2025 12:04 AM EDT [facility] ALBUMIN 3.8 3.2 - 5.3 g/dL 03/17/2025 12:04 AM EDT [facility] ALKALINE PHOSPHATASE 49 39 - 130 U/L 03/17/2025 12:04 AM EDT [facility] AST 14 <=41 U/L 03/17/2025 12:04 AM EDT [facility] ALT 11 <=31 U/L 03/17/2025 12:04 AM EDT [facility] BILIRUBIN,TOTAL 0.3 0.3 - 1.2 mg/dL 03/17/2025 12:04 AM EDT [facility] EGFR Non-Race Dependent >90 >=60 ml/min/1.7 3sq.m 03/17/2025 12:04 AM EDT [facility] Comment: eGFR not reported due to non-numeric value for Creatinine. Reported eGFR is based on the CKD-EPI 2020 equation that does not use a race coefficient. Blood Venous blood / Unknown Venipuncture / Unknown 03/16/2025 11:39 PM EDT 03/16/2025 11:41 PM EDT us Salma Patel MD LAB BLOOD ORDERABLES Final Re sult Performing Organization Address [facility] Co de Phone Number [address] [place] [address], * ECG 12 lead (03/16/2025 11:03 PM EDT) 03/16/2025 11:0 3 PM EDT Narrative TRACEMASTERVUE - 03/17/2025 12:45 AM EDT us Salma Patel MD ECG ORDERABLES Final Result Performing Organization Address [facility] Co de Phone Number TRACENHSTERVUE * POCT , urine (01/08/2025 9:38 AM EDT) POC Urine Negative Negative 01/08/2025 9:36 AM EDT [facility] Urine 01/08/2025 9:38 AM EDT 01/08/2025 9:36 AM EDT us Herman Carter MD POINT OF CARE TEST ORDERABLES F inal Result Performing Organization Address City/[facility] Co de Phone Number [address] [place] [address], [place] * (ABNORMAL) POCT Nursing Urine Macroscopic UA (01/08/2025 9:36 AM EDT) Only the most recent of2 resultswithin the time period is included. POC Urine Specific [place] 1.020 1.010, 1.015, 1.020, 1.025 01/08/2025 9:31 AM EDT [facility] POC Urine Leukocyte Esterase Large(A) Negative 01/08/2025 9:31 AM EDT [facility] POC Urine Nitrite Negative Negative 01/08/2025 9:31 AM EDT [facility] POC Urine pH 7.0 5.0, 6.0, 6.5, 7.0, 7.5, 8.0, 8.5, 5.5 01/08/2025 9:31 AM EDT [facility] POC Urine Protein 30 mg/dL(A) Negative 01/08/2025 9:31 AM EDT [facility] POC Urine Glucose Negative Negative 01/08/2025 9:31 AM EDT [facility] POC Urine Ketones Negative Negative 01/08/2025 9:31 AM EDT [facility] POC Urine Urobilinogen 1.0 E.U./dL 01/08/2025 9:31 AM EDT [facility] POC Urine Bilirubin Negative Negative 01/08/2025 9:31 AM EDT [facility] POC Urine Blood/HGB Trace(A) Negative 01/08/2025 9:31 AM EDT [facility] Urine 01/08/2025 9:36 AM EDT 01/08/2025 9:30 AM EDT us Herman Carter MD POINT OF CARE TEST ORDERABLES F inal Result [facility] [address] [place] [address], [place] * Extra Urine Culture (01/08/2025 9:27 AM EDT) Only the most recent of2 resultswithin the time period is included. Extra Tube Auto Resulted 01/08/2025 11:01 AM EDT [facility] Urine Urine specimen collection, clean catch / Unknown 01/08/2025 9:27 AM EDT 01/08/2025 9:47 AM EDT us Herman Carter MD URINE ORDERABLES Final Result Performing Organization Address City/[facility] Co de Phone Number [facility] [address] [place] [address] [place] [address], [place] * Extra Urine (01/08/2025 9:27 AM EDT) Only the most recent of2 resultswithin the time period is included. Extra Tube Auto Resulted 01/08/2025 11:01 AM EDT [facility] Urine Urine specimen collection, clean catch / Unknown 01/08/2025 9:27 AM EDT 01/08/2025 9:48 AM EDT us Herman Carter MD URINE ORDERABLES Final Result Performing Organization Address [facility] Co de Phone Number [facility] [address] [place] [address] [place] [address], [place] * Urine Culture Urine, Clean Catch Midstream (01/08/2025 9:27 AM EDT) CULTURE RESULTS 10-50,000 ORGANISMS/mL NORMAL UROGENITAL RUBY 01/09/2025 7:46 AM EDT [facility] Urine Urine specimen collection, clean catch / Unknown 01/08/2025 9:27 AM EDT 01/08/2025 9:47 AM EDT us Herman Carter MD MICROBIOLOGY - GENERAL ORDERABL ES Final Result Performing Organization Address City/[facility]/ZIP Co de Phone Number [facility] [address] [place] [address], * Chlamydia/Gonorrhoeae by PCR, Urine (12/31/2024 7:57 PM EDT) GONORRHOEAE PCR, U Negative Negative 01/01/2025 11:19 AM EDT [facility] Comment:Neisseria gonorrhoea e not detected by nucleic acid amplification. This does not exclude the possibility of infection because results are dependent on adequate specimen collection. CHLAMYDIA PCR, U Negative Negative 01/01/2025 11:19 AM EDT [facility] Comment:Chlamydia trachomati s not detected by nucleic acid amplification. This does not exclude the possibility of infection because results are dependent on adequate specimen collection. Urine Urine specimen collection, clean catch / Unknown 12/31/2024 7:57 PM EDT 12/31/2024 8:01 PM EDT Herman Carter MD MICROBIOLOGY - GENERAL ORDERABL ES Final Result [facility] [address] [place] [address], * Pap Smear (02/12/2022 11:49 AM EDT) 02/12/2022 11:4 9 AM EDT 02/12/2022 12:06 PM EDT Narrative COPATH - 02/19/2022 2:25 PM EDT [facility] [address] [place] [address] Gynecologic Cytology Consultation Patient Name:LANG SAH:1985 (Age: 36)Gender:FTaken:2Reported:02/19/2022hysician(s):MARLEEN Caballero CNP ([phone])Copy To: Rec. #:[id number]: #[id number] Final Cytologic Interpretation ThinPrep Pap Test (Vaginal/Cervical): Satisfactory for evaluation. NEGATIVE FOR INTRAEPITHELIAL LESION OR MALIGNANCY. Shift in ruby suggestive of bacterial vaginosis. pj/02/19/2022 Interpretation performed at [facility], [address] [place] [address], License number: [id number]. Electronically Signed Out By SONI Sanderson(ASCP) Date of Last Menstrual Period: (None Given) Other Clinical Conditions: Hysterectomy Z00.00 General adult medical examination wo/abnormal findings Source of Specimen ThinPrep Pap Test (Vaginal/Cervical) Thin Prep Pap (BUCKSHOT SWAGE OPERATOR) Fee Code(s): G0145 us [employer] N Nnaji ASSEMBLER DC FIELD RING-SEWING MACHINE OPERATOR SEMIAUTOMATIC PATHOLOGY/CYTOLOGY ORD ERABLES Final Result COPATH from Last 3 Months or Most Recently Relevant to Health Maintenance Insurance [employer] Care Teams Felt Machine Mechanic Relationship Specialty Start Date End Date No Pcp, [place] [address] PCP - General Family Medicine 10/29/24
--- OUTSIDE RECORDS SUMMARY | 2025-03-17 19:51 | XMS_ITS | Encounter Summary ---
Author Organization [employer] tem Address [id number] [address] [place] [address] Care Team Providers Care Puller Out Name Role Phone No Pcp, No Pcp Primary Care Provider Unavailabl e Encounter Details Date Type Department Care Team (Latest Contact Info) Description 03/16/2025 Travel Social History Tobacco Use Types Packs/Day Years Used Date Smoking Tobacco: Former Cigarettes 0.5 9 Smokeless Tobacco: Never Alcohol Use Standard Drinks/Week Comments Not Currently [...] Orientation Straight 02/08/2023 1: 09 PM EDT documented as of this encounter Plan of Treatment Not on file documented as of this encounter Visit Diagnoses Not on filedocumented in this encounter Additional Health Concerns Assessment Noted Time PHQ-9 Depression Total Score: 19 023 8:57 AM EST A Body Mass Index follow-up plan has been documented for the patient 02/01/2024 4:03 PM EDT documented as of this encounter Care Teams Puller Out Relationship Specialty Start Date End Date No Pcp, [place] [address] PCP - General Family Medicine 10/29/24 documented as of this encounter
--- OUTSIDE RECORDS SUMMARY | 2025-03-17 19:52 | XMS_ITS | Encounter Summary ---
Author Organization [facility] [facility] tem Address [id number] [address] [place] [address] Care Team Providers Care Access Registrar Name Role Phone No Pcp, No Pcp Primary Care Provider Unavailabl e Encounter Details Date Type Department Care Team (Late st Contact Info) Description 07/31/2022 Telephone [facility] [address] [place] [address] Lashanda Mendes APRN-COST AND RISK ANALYSIS MANAGER [address] [place] [address] Social History Tobacco Use Types Packs/Day Years Used Date Smoking Tobacco: Former Cigarettes 0.5 9 Smokeless Tobacco: Never Alcohol Use Standard Drinks/Week Comments Not Currently 0 (1 standard drink = 0.6 oz pur e alcohol) PHQ-2 Answer Date Recorded Total Score 0 04/08/2022 Childcare Answer Date Recorded Childcare Unknown 01/11/2019 Employment Answer Date Recorded Employment Unknown 01/11/2019 Purpose - Life Answer Date Recorded Purpose and direction in life Unknown Comments No Sex and Gender Information Value Date Recorded Sex Assigned at Female 02/08/2023 1:09 PM EDT Legal Sex Female 11:37 AM EDT Gender Identity Female 02/08/2023 1:09 PM EDT Sexual Orientation Straight 02/08/2023 1: 09 PM EDT documented as of this encounter Miscellaneous Notes * After Hours Note - MOISES Caballero - 07/31/2022 2:40 PM EST [facility] Call Center Patient: LANG ASH Call Date: 07/31/2022 Patient Birthdate: 1985 Triage Start Time: 02:40:59 PM Male/Female: Female Type: Telephone Triage Client id: [id number] [facility] Insurance id: Nurse: Sulema Banks Address: [address] [place] [address] [place] [address] Cell Caller Is: LANG ASH Cell Guideline 1: Cold Sores (Fever Blisters) - (Adult After-Hours) [facility]-[id number] Call Outcome: Call Physician When Office is Open (within 3 days) - Within 72 Hours Triage1 Level: See PCP within 2 Weeks REASON FOR CALL:cold sore two weeks ago and has a new one now NOTES:Cold sore in the right corner of mouth. small now - size of a seed. Sx onset 15 min ago. Used camphophinique and carmax and blistex. Denies fever or any other sx. 07/31/2022 14:46:18 EDDEIA Advised of homecare per guidelines, to call office on Wednesday for appt in next 2 weeks to discuss why she is getting them so regularly, and to be seen sooner should she see any s/s of infections as discussed - agreed documented in this encounter Plan of Treatment Not on file documented as of this encounter Visit Diagnoses Not on filedocumented in this encounter Additional Health Concerns Infection Onset Date Last Indicated Resolved Time COVID-19 Rule-Out 03/23/2023 03/23/2023 03/23/2023 8:47 PM EDT COVID-19 Rule-Out 10/22/2023 10/22/2023 10/22/2023 2:40 PM EDT COVID-19 Rule-Out 10/22/2023 10/22/2023 10/22/2023 9:26 PM EDT Assessment Noted Time PHQ-9 Depression Total Score: 0 04/08/20 9:29 AM EDT A Body Mass Index follow-up plan has been documented for the patient 05/14/2022 9:44 AM EDT documented as of this encounter Care Teams Access Registrar Relationship Specialty Start Date End Date No Pcp, [place] [address] PCP - General Family Medicine 10/29/24 documented as of this encounter
--- OUTSIDE RECORDS SUMMARY | 2025-03-17 19:52 | XMS_ITS | Encounter Summary ---
Author Organization [employer] tem Address [facility] [id number] [address] [place] [address] Care Team Providers Care Manager Of Compensation Name Role Phone No Pcp, No Pcp Primary Care Provider Unavailabl e Encounter Details Date Type Department Care Team (Late st Contact Info) Description 02/13/2022 Telephone [facility] [address] [place] [address] Nayeli Moreau CMA Social History Tobacco Use Types Packs/Day Years Used Date Smoking Tobacco: Former Cigarettes 0.5 9 Smokeless Tobacco: Never Alcohol Use Standard Drinks/Week Comments Not Currently 0 (1 standard drink = 0.6 oz pur e alcohol) PHQ-2 Answer Date Recorded Total Score 11 02/12/2022 Childcare Answer Date Recorded Childcare Unknown 01/11/2019 [...] Orientation Straight 02/08/2023 1: 09 PM EDT COVID-19 Exposure Response Date Recorded In the last month, have you been in contact with someone who was confirmed or suspected to have Coronavirus / COVID-19? No / Unsure 02/12/2022 9:04 AM EDT documented as of this encounter Miscellaneous Notes * Telephone Encounter - Nayeli Moreau CMA - 02/13/2022 11:56 AM EDT Pt called she had went to pharmacy to bean picker her Vit B 12 pills and she said they are not covered as they are an OTC so her ins will not cover. Pt said she is willing to go to the injections if she has to. So its covered. Please advise..Thank you! documented in this encounter Plan of Treatment [...] Assessment Noted Time PHQ-9 Depression Total Score: 11 022 9:20 AM EDT A Body Mass Index follow-up plan has been documented for the patient 02/13/2022 3:13 PM EDT documented as of this encounter Care Teams Manager Of Compensation Relationship Specialty Start Date End Date No Pcp, No Pcp [facility] [place] [id number] PCP - General Family Medicine 10/29/24 documented as of this encounter
--- OUTSIDE RECORDS SUMMARY | 2025-03-17 19:52 | XMS_ITS | Patient Health Record ---
Author Organization [facility] Address [address] [place] [address] Care Team Providers Care Label Remover Name Role Phone [email or web address] Primary Care Provider Raeann Card Unavailable [phone] Allergies Allergen (clinical drug ingredient) Drug/Non Drug Allergy documented on EMR Reaction Allergy Type Onset Date Status Bactroban BODY BLOWS UP Drug Allergy Act contreras diphenhydramine Benadryl hives Drug Allergy A ctive Claritin hives Drug Allergy Active lamotrigine LaMICtal rash Drug Allergy Activ e hydroxyzine Vistaril hives Drug Allergy Activ e Reason For Referral No Information Medications Medication SIG (Take, Route, Frequency, Duration) Notes Start Date End Date Status metroNIDAZOLE 500 MG Oral; Duration: 7 Active Ondansetron 4 MG Oral; Duration: 5 Active Hyoscyamine Sulfate 0.125 MG DISSOLVE 1 TABLET UNDER THE TONGUE EVERY 6 HOURS NEEDED FOR ABDOMINAL PAIN Sublingual; Duration: 5 Active Ciprofloxacin HCl 500 MG TAKE 1 TABLET B Y MOUTH TWICE DAILY Oral; Duration: 7 Active Social History Tobacco Use: Social History Observation Description Date Details (start date - stop date) Unknown Tobacco Screen: Question Answer Notes Are you a: Uses tobacco in other forms Alcohol Screening: Question Answer Notes Did you have a drink containing alcohol in the p ast year? No Points 0 Interpretation Negative Plan Of Treatment No Information Insurance Providers Payer Name Payer Address Payer Phone Subscriber Number Group Number Insured Name Patient Relationship to Insured Coverage Start Date Coverage End Date [employer] [place] [employer] [address] CLAIMS DEPT [facility] [id number] LANG JAMES Self - patient is the insured 3 [employer] [facility] [address] [place] [phone] [id number] LANG JAMES Self - patient is the insured 3 Medical (General) History Medical History History ICD Code ENTEROCOLITIS MRSA BLOOD STREAM 2009 Surgical History Surgery Date(Month/Year) GALL BLADDER 4 CSECTIONS
--- OUTSIDE RECORDS SUMMARY | 2025-03-17 19:52 | XMS_ITS | Encounter Summary ---
Author Organization [facility] tem Address [facility] [id number] [address] [place] [address] Care Team Providers Care Practicing Urologist Name Role Phone No Pcp, No Pcp Primary Care Provider Unavailabl e Encounter Details Date Type Department Care Team (Late st Contact Info) Description 12/13/2023 Orders Only [facility] [address] [place] [address] Catarina Trinidad, [employer] [address] [place], [place] [id number] Social History Tobacco Use Types Packs/Day Years [...] got money to buy more. Never True 10/22/2023 Within the past 12 months th e food we bought just didn't last and we didn't have money to get more. Never True 10/22/2023 Purpose - Life Answer Date Recorded Purpose [...] plan has been documented for the patient 09/24/2022 1:26 PM EST documented as of this encounter Care Teams Practicing Urologist Relationship Specialty Start Date End Date No Pcp, [place] [address] PCP - General Family Medicine 10/29/24 documented as of this encounter
--- OUTSIDE RECORDS SUMMARY | 2025-03-17 19:52 | XMS_ITS | CCD ---
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 not detected by nucleic acid amplification. This does not exclude the possibility of infection because results are dependent on adequate specimen collection. GONORRHOEAE DNA(PCR) Positive (qualifier value) Neisseria gonorrhoeae detected by nucleic acid amplification. Normal [facility] Comment on above: Performed By: #### C GS #### [facility] ([id number]) [address], [address] [place] [address] HCG ( test) Ql (U)o n 10-02-2024 Beta HCG ( test) Ql (U) Negative Normal NEG [facility] Comment on above: Performed By: #### 2 106-3 #### [facility] ([id number]) [address] [place] [address] HERPES SIMPLEX VIRAL PCRon 0 10-02-2024 HERPES SIMPLEX VIRAL PCR SPECIMEN SOURCE R LABIA MINORA HERPES SIMPLEX 1 PCR Negative (qualifier value) HSV 1 DNA Not Detected HERPES SIMPLEX 2 PCR Negative (qualifier value) HSV 2 DNA Not Detected [facility] Comment on above: Performed By: #### H SV12 #### [facility] ([id number]) [address] [place] [address] [facility] ([id number]) [address], [address] [place] [address] URN MACROSCOPIC NURon 2024 BILIRUBIN JOHNSON Small Abnormal NEG [facility] Comment on above: Performed By: #### N UM #### [facility] ([id number]) [address] [place] [address] BLOOD/HGB JOHNSON Small Abnormal NEG [facility] Comment on above: Performed By: #### N UM #### [facility] ([id number]) [address] [place] [address] GLUCOSE JOHNSON Negative Normal NEG [facility] Comment on above: Performed By: #### N UM #### [facility] ([id number]) [address] [place] [address] KETONES JOHNSON Trace Abnormal NEG [facility] Comment on above: Performed By: #### N UM #### [facility] ([id number]) [address] [place] [address] [place] [address] LEUKOCYTE ESTERASE JOHNSON Small Abnormal NEG [facility] Comment on above: Performed By: #### N UM #### [facility] ([id number]) [address] [place] [address] NITRITE JOHNSON Negative Normal NEG [facility] Comment on above: Performed By: #### N UM #### [facility] ([id number]) [address] [place] [address] PH JOHNSON 5.5 Normal 5.0-8.5 [facility] Comment on above: Performed By: #### N UM #### [facility] ([id number]) [address] [place] [address] PROTEIN JOHNSON 30 mg/dL Abnormal NEG [facility] Comment on above: Performed By: #### N UM #### [facility] ([id number]) [address] [place] [address] SPECIFIC GRAVITY JOHNSON >=1.030 Normal 1.003-1.035 [facility] Comment on above: Performed By: #### N UM #### [facility] ([id number]) [address] [place] [address] UROBILINOGEN JOHNSON 1.0 eu/dL Normal <1.1 [facility] Comment on above: Performed By: #### N UM #### [facility] ([id number]) [address] [place] [address] VAGINITIS PANEL PCRon 2024 VAGINITIS PANEL PCR BACT. VAGINOSIS DNA Not detected (qualifier value) Qualitative results are reported based on detection and quantitation of targeted organism markers which include: Lactobacillus spp. (L. crispatus and L. jensenii), Gardnerella vaginalis, Atopobium vaginae, Bacterial Vaginosis Associated Bacteria-2 (BVAB-2) and Megasphaera-1 TRESA SPECIES DNA Not detected (qualifier value) Tresa species not detected include: C. albicans, C. tropicalis, C. parapsilosis or C. dubliniensis TRESA KRUSEI DNA Not detected (qualifier value) No Tresa krusei detected TRESA GLABRATA DNA Not detected (qualifier value) No Tresa glabrata detected TRICHOMONAS VAG DNA Not detected (qualifier value) No Trichomonas vaginalis detected NOTE BD MAX Vaginal Panel has not been evaluated for patients under 18 years old. Results for these patients should be reviewed and assessed in accordance with clinical presentation to determine patient diagnosis. Normal [facility] Comment on above: Performed By: #### V PPCR #### [facility] ([id number]) [address] [place] [address], [address] [place] [address] XR SPINE LUMBAR 2 OR 3 VWSon 07-07-2024 XR SPINE LUMBAR 2 OR 3 VWS XR SPINE LUMBAR 2 OR 3 VWS HISTORY: A 38-year-old female with the history of the low back pain. TECHNIQUE: Lumbar spine: 3 views COMPARISON: Comparison is made with the lumbar spine radiographs of 02/24/2016. FINDINGS: Vertebral heights and intervertebral disc spaces are intact. There is no evidence of fracture, spondylolysis or spondylolisthesis. Pedicles are intact. Facet arthropathy seen at L5-S1. There is a spina bifid a occult of the first sacral segment. Both sacroiliac joints are unremarkable. There are surgical clips in the right upper abdomen from prior cholecystectomy. IMPRESSION: * No evidence of fracture, spondylolisthesis or acute bony pathology in the lumbar spine. Finalized by Javi Wisdom MD on 07/07/2024 3:30 PM [facility] CHLAMYDIA/GC BY PCRon 2023 CHLAMYDIA/GC BY PCR SPECIMEN SOURCE CERVIX CHLAMYDIA DNA(PCR) Negative (qualifier value) Chlamydia trachomatis not detected by nucleic acid amplification. This does not exclude the possibility of infection because results are dependent on adequate specimen collection. GONORRHOEAE DNA(PCR) Negative (qualifier value) Neisseria gonorrhoeae not detected by nucleic acid amplification. This does not exclude the possibility of infection because results are dependent on adequate specimen collection. Normal [facility] Comment on above: Performed By: #### C GS #### [facility] ([id number]) [address] [place] [address], [address] [place] [address] VAGINITIS PANEL PCRon 2023 VAGINITIS PANEL PCR BACT. VAGINOSIS DNA Not detected (qualifier value) Qualitative results are reported based on detection and quantitation of targeted organism markers which include: Lactobacillus spp. (L. crispatus and L. jensenii), Gardnerella vaginalis, Atopobium vaginae, Bacterial Vaginosis Associated Bacteria-2 (BVAB-2) and Megasphaera-1 TRESA SPECIES DNA Not detected (qualifier value) Tresa species not detected include: C. albicans, C. tropicalis, C. parapsilosis or C. dubliniensis TRESA KRUSEI DNA Not detected (qualifier value) No Tresa krusei detected TRESA GLABRATA DNA Not detected (qualifier value) No Tresa glabrata detected TRICHOMONAS VAG DNA Not detected (qualifier value) No Trichomonas vaginalis detected NOTE BD MAX Vaginal Panel has not been evaluated for patients under 18 years old. Results for these patients should be reviewed and assessed in accordance with clinical presentation to determine patient diagnosis. Normal [facility] Comment on above: Performed By: #### V PPCR #### [facility] ([id number]) [address] [place] [address], [facility] [address] [place] [address] TB-QFTon 03-23-2024 Mitogen minus Nil 9.98 IU/mL Normal [facility] Comment on above: Performed By: #### C [id number] #### [place] [id number] Nil Result 0.02 IU/mL Normal [facility] Comment on above: Performed By: #### C [id number] #### [place] [id number] QuantiFERON-TB Gold Plus Negative Normal Negative [facility] Comment on above: Result Comment: No i nterferon-gamma response to M. tuberculosis antigens was detected. Latent infection with M. tuberculosis is unlikely. A single negative result does not exclude infection with M. tuberculosis. In patients at high risk for M.tuberculosis infection, a second test should be considered in accordance with the 2017 ATS/IDSA/ CDC Clinical Practice Guidelines for Diagnosis of Tuberculosis in Adults and Children [Mary YANG et. al. Clin. Infect. Dis. 2017;64(2):111?115]. The reference range for the 'TB1 Ag minus Nil Result' and 'TB2 Ag minus Nil Result' is an Interferon-gamma level Performed By: #### C [id number] #### [place] [id number] TB1 Ag minus Nil 0.00 IU/mL [facility] Comment on above: Performed By: #### C [id number] #### [place] [id number] TB2 Ag minus Nil 0.02 IU/mL [facility] Comment on above: Performed By: #### C [id number] #### [place] [id number] OR Trackon 03-22-2024 QuantiFeron TB Drk Grn Li Hep # 1 [facility] Comment on above: Performed By: #### O [facility] Tracking Order #### [address] [address] Specimens Received From [employer] [facility] Comment on above: Performed By: #### O [facility] Tracking Order #### [place] [id number] BASIC METABOLIC PANLon 02-10 Anion gap [Moles/Vol] 5 mmol/L Normal 5-15 [facility] Comment on above: Performed By: #### C SHARONDA PINR, 52695-4, BMP #### [facility] ([id number]) [address] [place] [address] Calcium [Mass/Vol] 8.6 mg/dL Normal 8.5-10.5 [facility] Comment on above: Performed By: #### C SHARONDA PINR, 67286-2, BMP #### [facility] ([id number]) [address] [place] [address] Chloride [Moles/Vol] 104 mmol/L Normal 98-109 [facility] Comment on above: Performed By: #### C BCA, PINR, 71807-6, BMP #### [facility] ([id number]) [address] [place] [address] 47771 CO2 [Moles/Vol] 26 mmol/L Normal 22-32 [facility] Comment on above: Performed By: #### C SHARONDA PINR, 62539-5, BMP #### [facility] ([id number]) [address] [place] [address] Creatinine [Mass/Vol] 0.73 mg/dL Normal 0.40-1.00 [facility] Comment on above: Result Comment: METH OD TRACEABLE TO IDMS STANDARD Performed By: #### C SHARONDA PINR, 73281-6, BMP #### [facility] ([id number]) [address] [place] [address] eGFR (CKD-EPI) NON-RACE DEPENDENT >90 Normal >59 [facility] Comment on above: Result Comment: Reported eGFR is based on the CKD-EPI 2021 equation that does not use a race coefficient. Performed By: #### C SHARONDA PINR, 01976-1, BMP #### [facility] ([id number]) [address] [place] [address] Glucose [Mass/Vol] 125 mg/dL High 65-99 [facility] Comment on above: Performed By: #### C SHARONDA, PINR, 30060-3, BMP #### [facility] ([id number]) [address] [place] [address] Potassium [Moles/Vol] 4.1 mmol/L Normal 3.5-5.0 [facility] Comment on above: Performed By: #### C BCA, PINR, 33642-9, BMP #### [facility] ([id number]) [address] [place] [address] 58141 Sodium [Moles/Vol] 135 mmol/L Normal 134-146 [facility] Comment on above: Performed By: #### C SHARONDA, PINR, 91169-5, BMP #### [facility] ([id number]) [address] [place] [address] Urea nitrogen [Mass/Vol] 11 mg/dL Normal 5-23 [facility] Comment on above: Performed By: #### C SHARONDA PINR, 59899-2, BMP #### [facility] ([id number]) [address] [place] [address] 95017 CBC AND AUTO DIFFon 02-11-20 24 ABSOLUTE BASOPHIL 0.0 X10E9/L Normal 0.0-0.2 [facility] Comment on above: Performed By: #### C SHARONDA PINR, 33299-7, BMP #### [facility] ([id number]) [address] [place] [address]876 ABSOLUTE NEUTROPHIL 3.8 X10E9/L Normal 1.5-6.6 [facility] Comment on above: Performed By: #### Sage MCDONOUGH, PINR, 52067-4, BMP #### [facility] ([id number]) [address] [place] [address]7777 Basophils/100 WBC (Bld) 0.6 % Normal [facility] Comment on above: Performed By: #### C SHARONDA, PINR, 45709-6, BMP #### [facility] ([id number]) [address] [place] [address] Eosinophils (Bld) [#/Vol] 0.4 10*3/uL Normal 0.0-0.4 [facility] Comment on above: Performed By: #### Sage MCDONOUGH, PINR, 29978-3, BMP #### [facility] ([id number]) [address] [place] [address] Eosinophils/100 WBC (Bld) 5.9 % Normal [facility] Comment on above: Performed By: #### AMANDEEP Cazares BCA, 63180-8, BMP #### [facility] ([id number]) [address] [place] [address] Erythrocyte distribution width (RBC) [Ratio] 12.7 % Normal 11.5-15.0 [facility] Comment on above: Performed By: #### AMANDEEP Cazares BCA, 29683-9, BMP #### [facility] ([id number]) [address] [place] [address] Hematocrit (Bld) [Volume fraction] 37.4 % Normal 35-47 [facility] Comment on above: Performed By: #### AMANDEEP Cazares BCA, 86159-3, BMP #### [facility] ([id number]) [address] [place] [address] Hemoglobin (Bld) [Mass/Vol] 12.7 g/dL Normal 11.7-15.5 [facility] Comment on above: Performed By: #### AMANDEEP Cazares BCA, 00931-2, BMP #### [facility] ([id number]) [address] [place] [address] Lymphocytes (Bld) [#/Vol] 2.1 10*3/uL Normal 1.0-3.5 [facility] Comment on above: Performed By: #### AMANDEEP Cazares BCA, 00836-7, BMP #### [facility] ([id number]) [address] [place] [address] 94787 Lymphocytes/100 WBC (Bld) 31.4 % Normal [facility] Comment on above: Performed By: #### AMANDEEP Cazares BCA, 64786-7, BMP #### [facility] ([id number]) [address] [place] [address] 68078 MCH (RBC) [Entitic mass] 28.7 pg Normal 27-34 [facility] Comment on above: Performed By: #### Sage MCDONOUGH PINR, 56013-4, BMP #### [facility] ([id number]) [address] [place] [address] 24758 MCHC (RBC) [Mass/Vol] 33.8 g/dL Normal 32-36 [facility] Comment on above: Performed By: #### Sage MCDONOUGH PINR, 67947-5, BMP #### [facility] ([id number]) [address] [place] [address] 58147 MCV (RBC) [Entitic vol] 85 fL Normal 80-100 [facility] Comment on above: Performed By: #### Sage MCDONOUGH PINR, 99147-4, BMP #### [facility] ([id number]) [address] [place] [address] 83368 Monocytes (Bld) [#/Vol] 0.4 10*3/uL Normal 0-0.9 [facility] Comment on above: Performed By: #### Sage MCDONOUGH PINR, 51997-9, BMP #### [facility] ([id number]) [address] [place] [address]79[address] Monocytes/100 WBC (Bld) 5.7 % Normal [facility] Comment on above: Performed By: #### Sage MCDONOUGH, PINR, 32017-5, BMP #### [facility] ([id number]) [address] [place] [address]4438 Neutrophils/100 WBC (Bld) 56.4 % Normal [facility] Comment on above: Performed By: #### Sage MCDONOUGH PINR, 87337-2, BMP #### [facility] ([id number]) [address] [place] [address] 03564 Platelet mean volume (Bld) [Entitic vol] 8.0 fL Normal 7-12 [facility] Comment on above: Performed By: #### Sage MCDONOUGH, PINR, 80450-9, BMP #### [facility] ([id number]) [address] [place] [address] Platelets (Bld) [#/Vol] 316 10*3/uL Normal 150-450 [facility] Comment on above: Performed By: #### C BCA, PINR, 71287-5, BMP #### [facility] ([id number]) [address] [place] [address]14 RBC COUNT 4.41 X10E12/L Normal 3.80-5.20 [facility] Comment on above: Performed By: #### C BCA, PINR, 99418-5, BMP #### [facility] ([id number]) [address] [place] [address] 95745 WBC (Bld) [#/Vol] 6.7 10*3/uL Normal 4.0-11.0 [facility] Comment on above: Performed By: #### C BCA, PINR, 58660-0, BMP #### [facility] ([id number]) [address] [place] [address] CHLAMYDIA/GC BY PCRon 2023 CHLAMYDIA/GC BY PCR SPECIMEN SOURCE VAGINAL Corrected on 02/10 AT 1124: Previously reported as VAGINAL CHLAMYDIA DNA(PCR) Negative (qualifier value) Chlamydia trachomatis not detected by nucleic acid amplification. This does not exclude the possibility of infection because results are dependent on adequate specimen collection. GONORRHOEAE DNA(PCR) Negative (qualifier value) Neisseria gonorrhoeae not detected by nucleic acid amplification. This does not exclude the possibility of infection because results are dependent on adequate specimen collection. Normal [facility] Comment on above: Performed By: #### 4 9610-9 #### [facility] ([id number]) [address], [address] [place] [address] CT [address] WO CONT[address] CT BRAIN WO CONT CT BRAIN WO CONT STUDY: CT HEAD WITHOUT CONTRAST CLINICAL HISTORY: Polytrauma, blunt Head trauma COMPARISON: None Procedure: Multi-detector CT performed through the brain without IV contrast. The lack of IV contrast limits evaluation for acute infarct, mass, infectious process,or demyelinating disease.Automated exposure control was utilized. Findings: There is no intracranial hemorrhage, extra-axial fluid collection, mass effect, or hydrocephalus. Ibrahim-white matter differentiation is appropriate. Infarcts and masses may be occult on CT, but grossly no acute infarct identified There is no midline shift. IMPRESSION: * No acute intracranial findings. Consider brain MRI if you suspect occult process. All CT scans at this facility use dose modulation, iterative reconstruction, and/or weight based dosing when appropriate to reduce radiation dose to as low as reasonably achievable. Finalized by Nino Zarate MD on 02/11/2024 10:12 PM Normal [facility] CT CHEST W CONTon 02-11-2024 CT CHEST W CONT CT CHEST W CONT Study: Contrast-enhanced CT of the chest dated 02/11/2024 9:36 PM. Indication: Chest trauma. Comparison: None . Technique: After the injection of intravenous nonionic iodinated contrast, axial CT of the chest was performed from the lung apices to the hemidiaphragms. 2-D reformats were obtained. All CT scans at this facility use dose modulation, iterative reconstruction, and/or weight based dosing when appropriate to reduce radiation dose to as low as reasonably achievable. Findings: The central airways are patent. No clinically significant pulmonary nodules, areas of airspace disease, pleural effusions or pneumothorax. The heart is not appear enlarged and there is no pericardial effusion. No thoracic aortic aneurysm. No lymphadenopathy is noted in the thorax. Visualized upper abdomen is unremarkable. No acute or grossly suspicious osseous abnormality. Impression: No acute intrathoracic process identified. Finalized by Mihir Gardner MD on 02/11/2024 10:27 PM Normal [facility] PROTIME AND INRon 02-11-2024 INR Coag (PPP) [Relative time] 1.1 {INR} Normal 0.8-1.1 [facility] Comment on above: Performed By: #### C AMANDEEP MCDONOUGH, 63547-4, BMP #### [facility] ([id number]) [address] [place] [address] PT Coag (PPP) [Time] 12.4 s Normal 9.8-13.2 [facility] Comment on above: Performed By: #### C BCA, PINR, 12330-6, BMP #### [facility] ([id number]) [address] [place] [address]28 URN MACROSCOPIC NURon 2023 BILIRUBIN JOHNSON Negative Normal NEG [facility] Comment on above: Performed By: #### N UM #### [facility] ([id number]) [address] [place] [address]1994 BLOOD/HGB JOHNSON Trace Abnormal NEG [facility] Comment on above: Performed By: #### N UM #### [facility] ([id number]) [address] [place] [address] 96553 GLUCOSE JOHNSON Negative Normal NEG [facility] Comment on above: Performed By: #### N UM #### [facility] ([id number]) [address] [place] [address]8763 KETONES JOHNSON Negative Normal NEG [facility] Comment on above: Performed By: #### N UM #### [facility] ([id number]) [address] [place] [address] 06206 LEUKOCYTE ESTERASE JOHNSON Trace Abnormal NEG [facility] Comment on above: Performed By: #### N UM #### [facility] ([id number]) [address] [place] [address] [id number] NITRITE JOHNSON Negative Normal NEG [facility] Comment on above: Performed By: #### N UM #### [facility] ([id number]) [address] [place] [address] [phone] PH JOHNSON 7.0 Normal 5.0-8.5 [facility] Comment on above: Performed By: #### N UM #### [facility] ([id number]) [address] [place] [address] [phone] PROTEIN JOHNSON Negative Normal NEG [facility] Comment on above: Performed By: #### N UM #### [facility] ([id number]) [address] [place] [address] 01297 SPECIFIC GRAVITY JOHNSON 1.020 Normal 1.003-1.035 [facility] Comment on above: Performed By: #### N UM #### [facility] ([id number]) [address] [place] [address] 36464 UROBILINOGEN JOHNSON 1.0 eu/dL Normal <1.1 [facility] Comment on above: Performed By: #### N UM #### [facility] ([id number]) [address] [place] [address] [id number] VAGINITIS PANEL PCRon 2023 VAGINITIS PANEL PCR BACT. VAGINOSIS DNA Detected (qualifier value) Qualitative results are reported based on detection and quantitation of targeted organism markers which include: Lactobacillus spp. (L. crispatus and L. jensenii), Gardnerella vaginalis, Atopobium vaginae, Bacterial Vaginosis Associated Bacteria-2 (BVAB-2) and Megasphaera-1 TRESA SPECIES DNA Not detected (qualifier value) Tresa species not detected include: C. albicans, C. tropicalis, C. parapsilosis or C. dubliniensis TRESA KRUSEI DNA Not detected (qualifier value) No Tresa krusei detected TRESA GLABRATA DNA Not detected (qualifier value) No Tresa glabrata detected TRICHOMONAS VAG DNA Not detected (qualifier value) No Trichomonas vaginalis detected NOTE BD MAX Vaginal Panel has not been evaluated for patients under 18 years old. Results for these patients should be reviewed and assessed in accordance with clinical presentation to determine patient diagnosis. Normal [facility] Comment on above: Performed By: #### V PPCR #### [facility] ([id number]) [address], [address] [place] [address] aPTT Coag (PPP) [Time]on aPTT Coag (Bld) [Time] 33 s Normal 26-37 [facility] Comment on above: Performed By: #### C BCA, PINR, 21576-4, BMP #### [facility] ([id number]) [address] [place] [address] 62574 S. pyogenes Ag Ql (Throat)on 01-23-2024 DIRECT STREP A Negative Normal NEG [facility] Comment on above: Performed By: #### 4 9610-9 #### [facility] ([id number]) [address], [address] [place] [address] S. pyogenes DNA DEVIKA+probe No m (Unsp spec)on 01-23-2024 STREP PCR THROAT Negative Normal NEG [facility] Comment on above: Result Comment: Streptococcus Group A NOT detected by nucleic acid amplification. Performed By: #### 4 9610-9 #### [facility] ([id number]) [address], [address] [place] [address] ED Provider Noteson 08-20-19 [employer] Authentication Interface Message Text EMERGENCY DEPARTMENT - VISIT NOTE Date: 08/20/2023 Patient: Lang Ash Triage: Patient presents with: Abdominal pain - Said she was moving a bed at work and had sudden onset of 7/10 pain in abd wrapping around to back -------- HISTORY OF PRESENT ILLNESS ---- 08/20/2023, 8:19 PM. The history is provided [...] except as noted in HPI PAST HISTORY Past Medical History: Denies Past Surgical History: Abd surg x4, hys, appendix Social History: Social History Socioeconomic History Marital status: Single Social Determinants of Health Financial Resource Strain: Low Risk (09/30/2018) Received from [facility] Overall Financial Resource Strain (CARDIA) Difficulty of Paying Living Expenses: Not hard at all Food Insecurity: No Food Insecurity (03/23/2023) Received from [facility] Hunger Screening Within the past 12 months we worried whether our food would run out before we got money to buy more.: Never True Within the past 12 months the food we bought just didn't last and we didn't have money to get more.: Never True Transportation Needs: No Transportation Needs (09/30/2018) Received from [facility] PRAPARE - Transportation Lack of Transportation (Medical): No Lack of Transportation (Non-Medical): No Physical Activity: Insufficiently Active (09/30/2018) Received from [facility] Exercise Vital Sign Days of Exercise per Week: 3 days Minutes of Exercise per Session: 30 min Stress: Stress Concern Present (09/30/2018) Received from [facility] [employer] - Occupational Stress Questionnaire Feeling of Stress : To some extent Social Connections: Moderately Isolated (09/30/2018) Received from [facility] Social Connection and Isolation Panel [NHANES] Frequency of Communication with Friends and Family: Twice a week Frequency of Social Gatherings with Friends and Family: Three times a week Attends Taoist Services: Never Active Member of Clubs or Organizations: No Attends Club or Organization Meetings: Never Marital Status: Medications: The patient's home medications have been reviewed. Allergies: Bactroban [mupirocin], Benadryl [diphenhydramine], and Vistaril [atazine] PHYSICAL EXAM Blood Pressure 116/89 Pulse 69 Temperature 99 [...] Psych: cooperative, appropriate thought content and judgement ED COURSE - ED Medications: Medications ketorolac (TORADOL) 15 MG/ML injection (has no administration in time range) cyclobenzaprine (FLEXERIL) tablet (has no administration in time range) MEDICAL DECISION MAKING --------- Vital Signs: Reviewed the patient's vital signs. [...] d (more content not included)... Normal [facility] Orthopedic Office/Clinic Not low 04-26-2023 Orthopedic Office/Clinic Note Patient did not have appoinment Mago Banks Electronically Signed by Graciela Valdez 04/26/23 07:51 EDT Surjit Mendez Normal [facility] Comment on above: Order Comment: Keira nt did not have appoinment CHEM 7on 06-23-2018 Anion gap molar conc 10 mmol/L Normal 7-17 [facility] Comment on above: Performed By: #### H [facility], M7, HFP #### [facility] [address] [place] [address] [facility] [address] [place], [place] [address] Chloride molar conc 105 mmol/L Normal 98-108 [facility] Comment on above: Performed By: #### H [facility], CHM7, HFP #### [facility] [address] [place] [address] [facility] [address] [place] [address] CO2 molar conc 28 mmol/L Normal 22-30 [facility] Comment on above: Performed By: #### H GARY HOLDENM7, HFP #### [facility] [address] [place] [address] [facility] [address] [place] [address] 75896 Creatinine mass conc 0.76 mg/dL Normal 0.50-1.20 [facility] Comment on above: Performed By: #### Raina HOLDEN CHM7, HFP #### [facility] [address] [place] [address] 28104 [facility] [address] [place] [address] 07060 Est GFR, >60 Normal >60 [facility] Comment on above: Performed By: #### Raina HOLDEN CHM7, HFP #### [facility] [address] [place] [address] 9[address] [facility] [address] [place] [address] 46939 Est GFR,non >60 Normal >60 [facility] Comment on above: Performed By: #### Raina HOLDEN CHM7, HFP #### [facility] [address] [place] [address] 68702 [facility] [address] [place] [address] 52468 Glucose mass conc 85 mg/dL Normal 70-99 [facility] Comment on above: Performed By: #### Raina HOLDEN CHM7, HFP #### [facility] [address] [place] [address] [facility] [address] [place] [address] 86664 Osmolality 288 mOsm/kg Normal 278-305 [facility] Comment on above: Performed By: #### Raina HOLDEN CHM7, HFP #### [facility] [address] [place] [address] 03[address] [facility] [address] [place] [address] 81545 Potassium molar conc 4.8 mmol/L Normal 3.5-5.0 [facility] Comment on above: Performed By: #### Raina HOLDEN CHM7, HFP #### [facility] [address] [place] [address] 44726 [facility] [address] [place] [address] 44956 Sodium molar conc 138 mmol/L Normal 133-143 [facility] Comment on above: Performed By: #### ROSIBEL MITTAL, HFP #### [facility] [address] [place] [address] 11482 [facility] [address] [place] [address] 16354 Urea nitrogen mass conc 9 mg/dL Normal - [facility] Comment on above: Performed By: #### ROSIBEL MITTAL, HFP #### [facility] [address] [place] [address] [address] [place] [address] Urea nitrogen/Creatinine mass ratio 12 mg/mg Normal [facility] Comment on above: Performed By: #### ROSIBEL MITTAL, HFP #### [facility] [address] [place] [phone] [place] [address] [place] [address] 73299 HEMOGRAM (CBC and Platelet)o n 06-23-2018 Hematocrit Volume Fraction (Bld) 38.9 % Normal 34.9-44.3 [facility] Comment on above: Performed By: #### ROSIBEL MITTAL, HFP #### [facility] [address] [place] [address] [address] [place] [address] 53216 Hemoglobin mass conc (Bld) 12.6 g/dL Normal 11.4-15.2 [facility] Comment on above: Performed By: #### ROSIBEL MITTAL, HFP #### [facility] [address] [place] [address] 48562 [facility] [address] [place] [address] 27482 MCV Entitic volume (RBC) 86.1 fL Normal 79.6-97.7 [facility] Comment on above: Performed By: #### ROSIBEL MITTAL, HFP #### [facility] [address] [place] [address] 51937 [facility] [address] [place] [address] Mean Cell Hgb 27.9 pg Normal 25.9-33.9 [facility] Comment on above: Performed By: #### ROSIBEL MITTAL, HFP #### [facility] [address] [place] [address] [address] [place] [address] Mean Cell Hgb Conc 32.4 g/dL Normal 31.4-35.9 [facility] Comment on above: Performed By: #### ROSIBEL MITTAL, HFP #### [facility] [address] [place] [address] [address] [place] [address] 55018 Nucleated RBC #/vol (Bld) 0.0 /100 WBC Normal 0.0-0.2 [facility] Comment on above: Performed By: #### ROSIBEL MITTAL, HFP #### [facility] [address] [place] [address] [address] [place] [address] Platelet mean volume Entitic volume (Bld) 9.7 fL Normal 8.5-12.2 [facility] Comment on above: Performed By: #### ROSIBEL MITTAL, HFP #### [facility] [address] [place], [place] [address] [facility] [address] [place] [address] 83350 Platelets #/vol (Bld) 252 10*3/uL Normal 150-393 [facility] Comment on above: Performed By: #### ROSIBEL MITTAL, HFP #### [facility] [address] [place] [address] 10122 [facility] [address] [place] [address] 39414 RBC #/vol (Bld) 4.52 10*6/uL Normal 3.91-5.04 [facility] Comment on above: Performed By: #### H GARY HOLDENM7, HFP #### [facility] [address] [place] [address] 57803 [facility] [address] [place] [address] 98759 RBC #/vol (Bld) 11.9 % Normal 10.8-14.9 [facility] Comment on above: Performed By: #### H ADINA, GARYM7, HFP #### [facility] [address] [place] [address]807 [facility] [address] [place] [address] 37305 WBC #/vol (Bld) 5.16 10*3/uL Normal 3.99-11.19 [facility] Comment on above: Performed By: #### Raina HOLDEN CHM7, HFP #### [facility] [address] [place] [address] 06188 [facility] [address] [place] [address] 20386 HEPATIC FUNCTION PANELon Albumin mass conc 3.8 g/dL Normal 3.5-5.0 [facility] Comment on above: Performed By: #### Raina HOLDEN CHM7, HFP #### [facility] [address] [place] [address] 7[address]28 [facility] [address] [place] [address] 56333 ALP enzyme act/vol 91 U/L Normal 32-126 [facility] Comment on above: Performed By: #### Raina HOLDEN, CHM7, HFP #### [facility] [address] [place] [address] 45163 [facility] [address] [place] [address] 33754 ALT enzyme act/vol 48 U/L Normal 9-48 [facility] Comment on above: Performed By: #### Raina HOLDEN, CHM7, HFP #### [facility] [address] [place] [address] 6[address] [facility] [address] [place] [address] 17797 AST enzyme act/vol 19 U/L Normal 14-40 [facility] Comment on above: Performed By: #### H ADINA CHM7, HFP #### [facility] [address] [place] [address] 29532 [facility] [address] [place] [address] 78685 Bilirubin mass conc 0.4 mg/dL Normal <1.5 [facility] Comment on above: Performed By: #### H ADINA CHM7, HFP #### [facility] [address] [place] [address] 82479 [facility] [address] [place] [address] 77917 Bilirubin.direct mass conc 0.1 mg/dL Normal <0.3 [facility] Comment on above: Performed By: #### H ADINA CHM7, HFP #### [facility] [address] [place] [phone] [place] [address] [address] [place] [address] 12734 Protein mass conc 6.0 g/dL Low 6.4-8.3 [facility] Comment on above: Performed By: #### H GARY HOLDENM7, HFP #### [facility] [address] [place] [id number] [place] [address] [address] [place] [address] 65163 MRI ABDOMEN WITHOUT CONTRAST on 06-23-2018 MRI [...] bile duct is borderline in caliber. Normal [facility] CBC WITH DIFF Jorge A 2017 Abs Baso 0.10 K/uL Normal 0.00-0.15 [facility] Comment on above: Performed By: #### C BCDFJ #### [facility] [address] [place], [place] [address] Abs Eos 0.36 K/uL Normal 0.00-0.42 [facility] Comment on above: Performed By: #### C BCDFJ #### [facility] [address] [place], [place] [address] Abs Morrison 0.47 K/uL Normal 0.22-0.87 [facility] Comment on above: Performed By: #### C BCDFJ #### [facility] [address] [place], [place] [address] Basophils/100 WBC (Bld) 1.5 % Normal [facility] Comment on above: Performed By: #### C BCDFJ #### [facility], [facility] [address] [place] [address] 22405 DIFFERENTIAL TYPE Electronic Differential Normal [facility] Comment on above: Performed By: #### Sage PRYORJ #### [facility] [address] [place] [address] 07233 Eosinophils/100 WBC (Bld) 5.2 % Normal [facility] Comment on above: Performed By: #### Sage PRYORJ #### [facility] [address] [place] [address] 19597 Hematocrit Volume Fraction (Bld) 40.7 % Normal 34.9-44.3 [facility] Comment on above: Performed By: #### Sage PRYORJ #### [facility] [address] [place] [address] 26561 Hemoglobin mass conc (Bld) 13.5 g/dL Normal 11.4-15.2 [facility] Comment on above: Performed By: #### Sage PRYORJ #### [facility] [address] [place] [address] 49575 IMMATURE GRANS % 0.3 % Normal [facility] Comment on above: Performed By: #### Sage PRYORJ #### [facility] [address] [place] [address] 67057 IMMATURE GRANS ABSOLUTE <0.04 Normal 0.00-0.08 [facility] Comment on above: Performed By: #### Sage PRYORJ #### [facility] [address] [place] [address] 82319 Lymphocytes #/vol (Bld) 2.14 10*3/uL Normal 1.16-3.51 [facility] Comment on above: Performed By: #### Sage PRYORJ #### [facility] [address] [place] [address] 05151 Lymphocytes/100 WBC (Bld) 31.2 % Normal [facility] Comment on above: Performed By: #### Sage PRYORJ #### [facility], [facility] [address] [place], [place] [address] MCV Entitic volume (RBC) 85.7 fL Normal 79.6-97.7 [facility] Comment on above: Performed By: #### C BCDFJ #### [facility], [facility] [address] [place], [place] [address] Mean Cell Hgb 28.4 pg Normal 25.9-33.9 [facility] Comment on above: Performed By: #### C BCDFJ #### [facility] [address] [place] [address] 85873 Mean Cell Hgb Conc 33.2 g/dL Normal 31.4-35.9 [facility] Comment on above: Performed By: #### C ALEXANDRUDFJ #### [facility] [address] [place] [address] 80317 Monocytes/100 WBC (Bld) 6.9 % Normal [facility] Comment on above: Performed By: #### C ALEXANDRUDFJ #### [facility] [address] [place] [address] 79185 NEUTROPHIL SEGMENTED 54.9 % Normal [facility] Comment on above: Performed By: #### C BCDFJ #### [facility] [address] [place] [address] 42013 Nucleated RBC #/vol (Bld) 0.0 /100 WBC Normal 0.0-0.2 [facility] Comment on above: Performed By: #### C BCDFJ #### [facility] [address] [place] [address] 99861 Platelet mean volume Entitic volume (Bld) 9.7 fL Normal 8.5-12.2 [facility] Comment on above: Performed By: #### C BCDFJ #### [facility] [address] [place] [address] 72611 Platelets #/vol (Bld) 286 10*3/uL Normal 150-393 [facility] Comment on above: Performed By: #### Sage MCINTOSH #### [facility], [facility] [address] [place] [address] 86197 RBC #/vol (Bld) 4.75 10*6/uL Normal 3.91-5.04 [facility] Comment on above: Performed By: #### Sage MCINTOSH #### [facility], [facility] [address] [place] [address] 99641 RBC #/vol (Bld) 11.6 % Normal 10.8-14.9 [facility] Comment on above: Performed By: #### Sage MCINTOSH #### [facility] [address] [place] [address] 92501 SEGS + Bands,Absolute 3.77 K/uL Normal 1.64-7.28 [facility] Comment on above: Performed By: #### Sage MCINTOSH #### [facility] [address] [place] [address] 70661 WBC #/vol (Bld) 6.86 10*3/uL Normal 3.99-11.19 [facility] Comment on above: Performed By: #### Sage MCINTOSH #### [facility] [address] [place] [address] 31384 CHEM 7 ED - CHRIon 8 Anion gap molar conc 12 mmol/L Normal 7-17 [facility] Comment on above: Performed By: #### Sage MCINTOSH #### [facility] [address] [place] [address] 97223 Chloride molar conc 102 mmol/L Normal 98-108 [facility] Comment on above: Performed By: #### Sage MCINTOSH #### [facility] [address] [place] [address] 61363 CO2 molar conc 28 mmol/L Normal 22-30 [facility] Comment on above: Performed By: #### Sage MCINTOSH #### [facility] [address] [place] [address] 45650 Creatinine mass conc 0.72 mg/dL Normal 0.50-1.20 [facility] Comment on above: Performed By: #### C BCDFJ #### [facility] [address] [place] [address] 95395 Est GFR, >60 Normal >60 [facility] Comment on above: Performed By: #### C BCDFJ #### [facility] [address] [place] [address] 52866 Est GFR,non >60 Normal >60 [facility] Comment on above: Performed By: #### C BCDFJ #### [facility] [address] [place] [address] 84260 Glucose mass conc 96 mg/dL Normal 70-99 [facility] Comment on above: Performed By: #### C BCDFJ #### [facility] [address] [place] [address] 01568 Osmolality 288 mOsm/kg Normal 278-305 [facility] Comment on above: Performed By: #### C BCDFJ #### [facility] [address] [place] [address] 84526 Potassium molar conc 3.9 mmol/L Normal 3.5-5.0 [facility] Comment on above: Performed By: #### C BCDFJ #### [facility], [facility] [address] [place] [address] 55885 Sodium molar conc 138 mmol/L Normal 133-143 [facility] Comment on above: Performed By: #### C BCDFJ #### [facility], [facility] [address] [place] [address] 92762 Urea nitrogen mass conc 11 mg/dL Normal 7-22 [facility] Comment on above: Performed By: #### C BCDFJ #### [facility] [address] [place] [address] 54423 Urea nitrogen/Creatinine mass ratio 15 mg/mg Normal [facility] Comment on above: Performed By: #### C BCDFJ #### [facility] [address] [place] [address] 22389 Hepatic Functions - CHRIon 1 08-22-2017 Albumin mass conc 4.3 g/dL Normal 3.5-5.0 [facility] Comment on above: Performed By: #### C ALEXANDRUDFJ #### [facility] [address] [place] [address] 44856 ALP enzyme act/vol 100 U/L Normal 32-126 [facility] Comment on above: Performed By: #### C ALEXANDRUDFJ #### [facility] [address] [place] [address] 13582 ALT enzyme act/vol 77 U/L High 9-48 [facility] Comment on above: Performed By: #### C ALEXANDRUDFJ #### [facility] [address] [place] [address] 46707 AST enzyme act/vol 34 U/L Normal 14-40 [facility] Comment on above: Performed By: #### C ALEXANDRUDFJ #### [facility] [address] [place] [address] 67465 Bilirubin mass conc 0.4 mg/dL Normal <1.5 [facility] Comment on above: Performed By: #### C ALEXANDRUDFJ #### [facility] [address] [place] [address] 61730 Bilirubin.direct mass conc 0.1 mg/dL Normal <0.3 [facility] Comment on above: Performed By: #### C ALEXANDRUDFJ #### [facility] [address] [place] [address] 69000 Protein mass conc 7.0 g/dL Normal 6.4-8.3 [facility] Comment on above: Performed By: #### C ALEXANDRUDFJ #### [facility] [address] [place] [address] 59184 Vital Signs Date Time Vital Sign Value Performing Clinician Facility 08-20-2023 19:52-0500 Body temperature 99 [degF] Sindy Guadalupe DO Work Phone: [employer] 08-20-2023 19:52-0500 Body weight 70.76 kg S[facility]adalupe [facility]-20-2023 19:52-0500 Diastolic blood pressure 89 mm[Hg] Sindy Guadalupe DO Work Phone: [employer] 08-20-2023 19:52-0500 Heart rate 69 /min Sindy Guadalupe DO Work Phone: [employer] 08-20-2023 19:52-0500 Respiratory rate 18 /min Sindy Guadalupe DO [facility]-20-2023 19:52-0500 SaO2% (BldA) [Mass fraction] 100 % Sindy Guadalupe DO Work Phone[facility] 08-20-2023 19:52-0500 Systolic blood pressure 116 mm[Hg] Sindy Guadalupe DO Work Phone: [employer] 12-24-2021 19:14-0400 Diastolic blood pressure 75 mm[Hg] Dankia Harvey CNP Work Phone: [facility] Work Phone: 12-24-2021 19:14-0400 Heart rate 72 /min Danika Harvey CNP Work Phone: [facility] Work Phone: 12-24-2021 19:14-0400 Systolic blood pressure 119 mm[Hg] Danika Georgeer STAFF SCIENTIST Work Phone: [facility] Work Phone: 12-24-2021 18:56-0400 Body height 165.1 cm Danika Harvey CNP Work Phone: [facility] Work Phone: 12-24-2021 18:56-0400 Body mass index (BMI) [Ratio] 31.4 kg/m2 Danika Harvey CNP Work Phone: [facility] Work Phone: 12-24-2021 18:56-0400 Body surface area Derived from formula 1.93 m2 Danika Harvey CNP Work Phone: [facility] Work Phone: 12-24-2021 18:56-0400 Body temperature 97.7 [degF] Danika Harvey CNP Work Phone: [facility] Work Phone: 12-24-2021 18:56-0400 Body weight 85.64 kg Danika Harvey CNP Work Phone: [facility] Work Phone: 12-24-2021 18:56-0400 Diastolic blood pressure 90 mm[Hg] Danika Harvey CNP Work Phone: [facility] Work Phone: 12-24-2021 18:56-0400 Heart rate 70 /min Danika Harvey CNP Work Phone: [facility] Work Phone: 12-24-2021 18:56-0400 SaO2% (BldA) [Mass fraction] 99 % Danika Harvey CNP Work Phone: [facility] Work Phone: 12-24-2021 18:56-0400 Systolic blood pressure 130 mm[Hg] Danika Harvey CNP Work Phone: [facility] Work Phone: Encounters Encounter Date Encounter Type Care Provider Facility Start: 01-18-2025 End: 01-18-2025 Emergency department patient visit NO PCP NO PCP [facility] Start: 01-08-2025 End: 01-08-2025 Emergency department patient visit ELOY BONILLA [facility] Start: 12-31-2024 End: 12-31-2024 Emergency department patient visit NO PCP NO PCP [facility] Start: 12-01-2024 End: 12-02-2024 Emergency department patient visit NO PCP NO PCP [facility] Start: 10-29-2024 End: 10-29-2024 Emergency department patient visit NO PCP NO PCP [facility] Start: 10-04-2024 End: 10-04-2024 Emergency department patient visit [facility] Start: 10-02-2024 End: 10-02-2024 Emergency department patient visit [facility] Start: 07-07-2024 End: 07-11-2024 ambulatory MORENO Berrios [facility] Start: 07-04-2024 End: 07-04-2024 ambulatory [facility] Start: 07-04-2024 End: 07-04-2024 ambulatory [facility] Start: 05-29-2024 End: 05-29-2024 Emergency department patient visit [facility] Start: 03-22-2024 End: 03-22-2024 ambulatory Marciano Sanchez MD Facility:[facility] Start: 02-11-2024 End: 02-12-2024 Emergency department patient visit HEBERT BARBOUR [facility] Start: 02-11-2024 End: 02-11-2024 Emergency department patient visit [facility] Start: 02-11-2024 End: 02-11-2024 Emergency department patient visit [facility] Start: 02-01-2024 End: 02-01-2024 ambulatory [facility] Start: 01-23-2024 End: 01-23-2024 Emergency department patient visit DONAVON KENNEDY [facility] Start: 08-20-2023 End: 08-20-2023 Emergency department patient visit UNKNOWN PROVIDER Facility:[facility] Start: 08-20-2023 End: 08-20-2023 Emergency department patient visit Sindy Guadalupe DO Work Phone: [facility] Emergency Medicine Comment on above: Abdominal pain (Said she was moving a bed at work and had sudden onset of 7/10 pain in abd wrapping around to back) Start: 04-13-2023 ambulatory Mago Sanchez VP CARDIOVASCULAR SERVICE LINE-STAFF SCIENTIST Facility:[facility] Start: 12-24-2021 End: 12-24-2021 FQHC visit, estab pt Karla Tse [facility] Work Phone: [facility] Work Phone: Start: 12-24-2021 End: 12-24-2021 FQ visit new patient Danika Harvey CNP Work Phone: [facility] Work Phone: Start: 08-17-2018 Patient encounter procedure TAMI IBANEZ [facility] Start: 06-22-2018 End: 06-23-2018 Evaluation and management of inpatient OTHER: [facility] Procedures Date Procedure Procedure Detail Performing Clinician Start: 12-24-2021 Antibody hiv-1&hiv-2 single result Danika Harvey CNP Work Phone: Start: 12-24-2021 Appendectomy Danika elias STAFF SCIENTIST Work Phone: Start: 12-24-2021 section Danika Harvey STAFF SCIENTIST Work Phone: Start: 12-24-2021 Cholecystectomy Danika Harvey STAFF SCIENTIST Work Phone: Start: 12-24-2021 Dilation and curettage Danika Harvey STAFF SCIENTIST Work Phone: Start: 12-24-2021 Gluc bld gluc mntr d ev cleared fda spec home use Danika Harvey CNP Work Phone: Start: 12-24-2021 Hysterectomy Danika elias STAFF SCIENTIST Work Phone: Start: 12-24-2021 Laparoscopic cholecystectomy Danika Harvey STAFF SCIENTIST Work Phone: Start: 12-24-2021 Most recent hemoglob in a1c level < 7.0% Danika Harvey STAFF SCIENTIST Work Phone: Start: 12-24-2021 Psychotherapy w/rose mary ent 30 minutes Karla Tse [facility] Work Phone: Start: 12-24-2021 Tonsillectomy Danika perla STAFF SCIENTIST Work Phone: Plan of Treatment Date Care Activity Detail Author Start: 10-23-2037 Shingles (RZV) Vaccine (1 of 2) Shingles (RZV) Vaccine (1 of 2) [facility] Start: 01-27-2022 FQHC visit, estab pt Medical Established Patient [facility] Work Phone: Start: 12-24-2021 CBC W Auto Differential panel - Blood [facility] Start: 12-24-2021 Lipid 1996 panel - Serum or Plasma LIPID PROFILE [facility] Start: 10-23-2014 HPV Vaccine (optional start 27-45 years) HPV Vaccine (optional start 27-45 years) [facility] Start: 10-23-2008 Screening for malignant neoplasm of cervix Pap Smear [facility] Start: 10-23-2005 Hepatitis C screening Hepatitis C Antibody [facility] Start: 10-23-2005 Tetanus + diphtheria + acellular pertussis vaccine (product) Tdap Booster [facility] Start: 1987 Hepatitis B vaccination Hepatitis B (HBV) Vaccine (1 of 3 - 3-dose series) [facility] Start: 1987 Screening for malignant neoplasm of breast Mammography shared decision making (35 through 39 years) [facility] Immunizations Immunization Date Immunization Notes Care Provider Conrado cordova 08-13-2023 influenza, injectabl e, quadrivalent, preservative free Sindy Guadalupe DO Work Phone: [facility] 08-13-2023 Pfizer COVID-19 Vacc ine (12+ yrs, Formulation) mRNA, spike protein, LNP, pres. free, 30 mcg/0.3mL dose, malka-sucrose (CBI=451) Sindy Guadalupe DO Work Phone: [facility] Payers Date Payer Category Payer Unknown [id number] 2024 Unknown [id number] 2023 Unknown [id number] 2023 Unknown [employer] [place] [employer] [id number] 2023-Present [id number] 2018 Medicaid [id number] 2017 Unknown [id number] 1987 Unknown [id number] [id number] 1987 Unknown [id number] 2.16840.1.164806.3.579.2.594 1987 Unknown [id number] 2.16.840.1.956259.3.579.2.732 1987 Unknown [id number] 2.16.840.1.573461.3.579.2.6 1987 Unknown [id number] 2.16.840.1.852483.3.579.2.1286 1987 Unknown [id number] 2.16.840.1.627702.3.579.2.6 1987 Unknown [id number] 2.16.840.1.832656.3.579.2.1285 1987 Unknown [id number] 2.16.840.1.807866.3.579.2.1285 1987 Unknown [id number] 2.16.840.1.576777.3.579.2.1286 1987 Unknown [id number] 2.16.840.1.276704.3.579.2.1285 1987 Unknown [id number] 2.16.840.1.870398.3.579.2.1286 1987 Unknown [id number] 2.16.840.1.068323.3.579.2.6 1987 Unknown [id number] 2.16.840.1.908809.3.579.2.1285 1987 Unknown [id number] 2.16.840.1.166737.3.579.2.1286 1987 Unknown [id number] 2.16.840.1.951582.3.579.2.1286 1987 Unknown [id number] 2.16.840.1.237623.3.579.2.1285 1987 Unknown [id number] 2.16.840.1.548603.3.579.2.1285 1987 Unknown [id number] 2.16.840.1.069496.3.579.2.1285 1987 Unknown [id number] 2.16.840.1.686229.3.579.2.128 1987 Unknown [id number] 2.16.840.1.096665.3.579.2.1286 Social History Date Type Detail Facility Assertion Currently not se xually active (finding) [facility] Work Phone: Assertion Gender identity finding (finding) [facility] Work Phone: Assertion Finding of sexua l orientation (finding) [facility] Work Phone: Tobacco smoking status Unknown if ever smoked [facility] Work Phone: Start: 1985 Sex Assigned At Not on [facility] Gender identity Not on file [facility] NEGATED: Highlighted row Assertion Current drinker of alcohol (finding) [facility] Work Phone: NEGATED: Highlighted row Assertion Finding relating to drug misuse behavior (finding) [facility] Work Phone: NEGATED: Highlighted row Assertion Exposure to pollution (event) [facility] Work Phone: NEGATED: Highlighted row Assertion [facility] Work Phone: Mental Status Date Assessment Result Facility Cognitive function No suicidal i deation Suicidal thoughts (finding) [facility] Work Phone: Clinical Notes 12-24-2021 to 02-11-2024 Sindy Guadalupe, DO - 08/20/2023 8:19 PM Sindy Kwon, DO - 08/20/2023 8:19 PM ESTDischarge InstructionsAttachments Note Date & Type Note Facility 02-11-[address] CERVICAL SPINE WO CONT Procedure: CT CERVICAL SPINE WO CONT History: Polytrauma, blunt Neck trauma Multi-detector CT performed through the cervical spine in the axial plane with multiplanar reconstructions.Automated exposure control was utilized. Findings: There is no prevertebral soft tissue swelling. There is no fracture, malalignment or destructive lesion. IMPRESSION: * No acute findings. Consider MRI cervical spine and possibly cervical spine flexion-extension radiographs if you suspect occult soft tissue injury and/or ligamentous injury. All CT scans at this facility use dose modulation, iterative reconstruction, and/or weight based dosing when appropriate to reduce radiation dose to as low as reasonably achievable. Finalized by Nino Zarate MD on 02/11/2024 10:10 PM [facility] 08-20-2023 Physician Emergency department Note EMERGENCY DEPARTMENT - VISIT NOTE [...] No meds taken. No prior injury/back pain. ----- REVIEW OF SYSTEMS ------- The following systems were reviewed: All other pertinent ROS negative except as noted in HPI --------- PAST HISTORY Past Medical History: Denies Past Surgical History: Abd surg x4, hys, appendix Social History: Social History Socioeconomic History Marital status: Single Social Determinants of Health Financial Resource Strain: Low Risk (09/30/2018) Received from [facility] Overall Financial Resource Strain (CARDIA) Difficulty of Paying Living Expenses: Not hard at all Food Insecurity: No Food Insecurity (03/23/2023) Received from [facility] Hunger Screening Within the past 12 months we worried whether our food would run out before we got money to buy more.: Never True Within the past 12 months the food we bought just didn't last and we didn't have money to get more.: Never True Transportation Needs: No Transportation Needs (09/30/2018) Received from [facility] PRAPARE - Transportation Lack of Transportation (Medical): No Lack of Transportation (Non-Medical): No Physical Activity: Insufficiently Active (09/30/2018) Received from [facility] Exercise Vital Sign Days of Exercise per Week: 3 days Minutes of Exercise per Session: 30 min Stress: Stress Concern Present (09/30/2018) Received from [facility] [employer] - Occupational Stress Questionnaire Feeling of Stress : To some extent Social Connections: Moderately Isolated (09/30/2018) Received from [facility] Social Connection and Isolation Panel [NHANES] Frequency of Communication with Friends and Family: Twice a week Frequency of Social Gatherings with Friends and Family: Three times a week Attends Taoist Services: Never Active Member of Clubs or Organizations: No Attends Club or Organization Meetings: Never Marital Status: Medications: The patient's home medications have been reviewed. Allergies: Bactroban [mupirocin], Benadryl [diphenhydramine], and Vistaril [atazine] ------- PHYSICAL EXAM Blood Pressure 116/89 Pulse 69 Temperature 99 [...] Psych: cooperative, appropriate thought content and judgement ED COURSE ED Medications: Medications ketorolac (TORADOL) 15 MG/ML injection (has no administration in time range) cyclobenzaprine (FLEXERIL) tablet (has no administration in time range) --- MEDICAL DECISION MAKING - Vital Signs: Reviewed the patient s vital [...] HPI, PE, and studies not consistent with Appendicitis/cholecystis/hepat itis/pancreatitis/sbo/ileus/pe rf/vovulus/ischemia/ovarian torsion/TOA/ectopic and I have low suspicion for [...] Abdominal wall strain, initial encounter (Primary Diagnosis) [585803] Low back strain, initial encounter [[id number]] Medical Screening Exam: The patient has received [...] every 8 hours as needed for Pain. -------- COUNSELING Counseling: Spoke with the patient and [...] D.O. Attending Physician Department of Emergency Medicine [address] [place] [id number] [facility] 08-20-2023 Emergency department Note EMERGENCY DEPARTMENT - VISIT NOTE [...] No meds taken. No prior injury/back pain. ----- REVIEW OF SYSTEMS ------- The following systems were reviewed: All other pertinent ROS negative except as noted in HPI --------- PAST HISTORY Past Medical History: Denies Past Surgical History: Abd surg x4, hys, appendix Social History: Social History Socioeconomic History Marital status: Single Social Determinants of Health Financial Resource Strain: Low Risk (09/30/2018) Received from [facility] Overall Financial Resource Strain (CARDIA) Difficulty of Paying Living Expenses: Not hard at all Food Insecurity: No Food Insecurity (03/23/2023) Received from [facility] Hunger Screening Within the past 12 months we worried whether our food would run out before we got money to buy more.: Never True Within the past 12 months the food we bought just didn't last and we didn't have money to get more.: Never True Transportation Needs: No Transportation Needs (09/30/2018) Received from [facility] PRAPARE - Transportation Lack of Transportation (Medical): No Lack of Transportation (Non-Medical): No Physical Activity: Insufficiently Active (09/30/2018) Received from [facility] Exercise Vital Sign Days of Exercise per Week: 3 days Minutes of Exercise per Session: 30 min Stress: Stress Concern Present (09/30/2018) Received from [facility] [employer] - Occupational Stress Questionnaire Feeling of Stress : To some extent Social Connections: Moderately Isolated (09/30/2018) Received from [facility] Social Connection and Isolation Panel [NHANES] Frequency of Communication with Friends and Family: Twice a week Frequency of Social Gatherings with Friends and Family: Three times a week Attends Taoist Services: Never Active Member of Clubs or Organizations: No Attends Club or Organization Meetings: Never Marital Status: Medications: The patient's home medications have been reviewed. Allergies: Bactroban [mupirocin], Benadryl [diphenhydramine], and Vistaril [atazine] ------- PHYSICAL EXAM Blood Pressure 116/89 Pulse 69 Temperature 99 [...] Psych: cooperative, appropriate thought content and judgement ED COURSE ED Medications: Medications ketorolac (TORADOL) 15 MG/ML injection (has no administration in time range) cyclobenzaprine (FLEXERIL) tablet (has no administration in time range) --- MEDICAL DECISION MAKING - Vital Signs: Reviewed the patient s vital [...] HPI, PE, and studies not consistent with Appendicitis/cholecystis/hepat itis/pancreatitis/sbo/ileus/pe rf/vovulus/ischemia/ovarian torsion/TOA/ectopic and I have low suspicion for [...] Abdominal wall strain, initial encounter (Primary Diagnosis) [188468] Low back strain, initial encounter [331150] Medical Screening Exam: The patient has received [...] every 8 hours as needed for Pain. -------- COUNSELING Counseling: Spoke with the patient and [...] D.O. Attending Physician Department of Emergency Medicine [facility] [address] [facility] [address] [place] [id number] documented in this encounter [facility] 08-20-2023 Hospital Discharge instructions Sindy Guadalupe DO - 08/20/2023 8:14 [...] Care Everywhere.Strengthening Your Lower Body and Core (South Korean)Muscle strain (South Korean)documented in this encounter [facility] 12-24-2021 Evaluation note Includes: Assessments for all patient encounters Findings Bipolar I disorder, most rec ent episode Established Patient with Karla Tse [facility] 12/24/2021 Complex post-traumatic stres s disorder Established Patient with Karla Tse [facility] 12/24/2021 Assessment of body mass inde x [Body mass index [BMI] 31.0-31.9, adult] Medical New Patient with Danika Harvey CNP 12/24/2021 Diabetes Risk Test Score was five score 12/24/2021 Medical New Patient with Danika Wes STAFF SCIENTIST 12/24/2021 Psychiatric disorders depression, PTSD, anxiety, bipolar, schizophrenic tendancies Medical New Patient with Danika Wes STAFF SCIENTIST 12/24/2021 Screening for diabetes mellitus Medical New Patient with Danika Harvey STAFF SCIENTIST 12/24/2021 Screening for HIV Medical New Patient with Danika Harvey STAFF SCIENTIST 12/24/2021 [facility] Phone: 1(109) 969-314405-25-2022 History general Narrative - Reported Includes: Medical History in patient's chart Description Last Updated History of extraction of wisdom tooth hx of kidney stones 12/24/2021 History of gynecologic disorder endometr iosis 12/24/2021 History of obstetrical disorder / condit ion 5 children 12/24/2021 History of systemic hypertension 022 Recent immunization for flu 12/24/2021 [facility]: Evaluation note* Diagnosis Abdominal wall strain, initial encounter- Primary Low back strain, initial encounter [facility] History of Present Illness not supported for this document type No History of Present Illness [facility] Work Phone: Instructions Instructions not supported for this document type No [facility] Work Phone: Patient problem outcome Narrative Includes: Evaluations & Outcomes for active Goals No Outcomes [facility] Work Phone: Reason for referral (narrative)No Reason for [facility] Work Phone: Review of systems Narrative - Reported Review of Systems not supported for this document type No Review of [facility] Work Phone: Summary Purpose Family History No [...] No Advance Directives RecordedNo Advanced Directives Records FoundNo Advanced Directives Records FoundNo Advanced Directives Records FoundNo Advanced Directives Records FoundNo Advanced Directives Records FoundNo Advanced Directiv es Records Found Physical Exam Physical Exam not supported for this document type No Physical Exam Recorded Physical Exam not supported for this document type No Physical Exam Recorded Additional Source Comments INFORMATION SOURCE (unrecogn ized section and content) DATE CREATED AUTHOR 08/22/2018 [facility] DATE CREATED AUTHOR AUTHOR'S ORGANIZ ATION 09/04/2023 [facility] DATE CREATED AUTHOR AUTHOR'S ORGANIZ ATION 02/17/2024 [facility] DATE CREATED AUTHOR AUTHOR'S ORGANIZ ATION 03/24/2024 [facility] DATE CREATED AUTHOR AUTHOR'S ORGANIZ ATION 07/06/2024 [facility] DATE CREATED AUTHOR AUTHOR'S ORGANIZ ATION 01/10/2025 [facility] DATE CREATED AUTHOR AUTHOR'S ORGANIZ ATION 01/21/2025 [facility] Reason for Visit (unrecogniz ed section and [...] BE BASED ON THE PRIMARY CLINICAL RECORDS. [facility] [email or web address] [facility]. provides no warranty or guarantee of the accuracy or completeness of information in this document.
--- NOTE | 2025-03-17 19:58 | ECG_ITS ---
[facility] Test Date: 2025-03-17 Pat Name: LANG JAMES Department: Room: - Gender: Female Room Service [place]: : 1985 Requested By: [id number] Order Number: [id number] Reading MD: ABBIE POWERS M.D. Measurements Intervals [place] Rate: 77 P: 76 GA: 168 QRS: 76 QRSD: 88 T: 52 QT: 352 QTc: 383 Interpretive Statements 1100 Sinus rhythm 1470 with occasional supraventricular premature complexes 4068 Nonspecific Twave abnormality 6120 Possible right atrial enlargement 9140 abnormal rhythm ECG No previous ECG available for comparison Electronically Signed On 03-18-2025 8:36:46 EDT by ABBIE POWERS M.D.
== END 2025-03-17 21:30 | disposition left against medical advice (07) ==
LOC: ER 19:49
PROVIDERS: Emergency Provider Internal Medicine
DX: Z53.21 Procedure and treatment not carried out due to patient leaving prior to being seen by health care provider (principal)
CPT/HCPCS: 93005; 99281